=== PATIENT | male | born 1945 | race Caucasian/White ===

== ENCOUNTER → 2021-06-18 11:57 | Outpatient (CLI) | payer MEDICARE, SELFPAY ==
--- NOTE | 2021-06-18 12:00 | DI.RAD.S_ITS ---
PROCEDURE: XR KNEE RT 3V INDICATIONS: RIGHT KNEE PAIN, HX TORN ACL TECHNIQUE: 3 views of the knee were acquired. COMPARISON: None. FINDINGS: Bones: No fractures or dislocations. No suspicious bony lesions. Moderate narrowing of the medial femoral tibial joint and tricompartmental periarticular osteophyte formation. Soft tissues: No joint effusion. No suspicious soft tissue calcifications. IMPRESSION: Knee joint degeneration, most notably involving the medial femorotibial joint. Dictated by: Earl Alvarado [facility] Interpreted: Elyssa Miranda MD on 06/18/2021 at 12:55 Transcribed by: INES on 06/18/2021 at 12:56 Approved by: Elyssa Miranda MD, PhD on 06/18/2021 at 13:10
[2021-06-18 12:58] LABS: Add Manual Diff / Slide Review NO; Basophils Absolute Auto 0 /uL (0-100); Basophils Percent Auto 0.7 % (0-2); Eosinophils Absolute Auto 300 /uL (0-450); Eosinophils Percent Auto 4.3 % (2-4); Hematocrit 41.4 % (41-53); Hemoglobin 13.9 g/dL (13.5-17.5); Lymphocytes Absolute Auto 1800 /uL (1100-4500); Lymphocytes Percent Auto 25.5 % (25-40); Mean Corpuscular HGB Conc 33.5 % (30-36); Mean Corpuscular Hemoglobin 31.4 PG (26-34); Mean Corpuscular Volume 93.9 fL (80-100); Monocytes Absolute Auto 600 /uL (0-900); Monocytes Percent Auto 9.2 % (3-14); Neutrophils Absolute Auto 4200 /uL (1500-7000); Neutrophils Percent Auto 60.3 % (50-75); Platelet Count 185 X10^3/uL (150-400); Red Blood Cell Count 4.41 X10^6/uL (4.5-5.9); Red Cell Distribution Width 13.9 % (11.6-14.8); White Blood Cell Count 6.9 X10^3/uL (4.5-11.0)
[2021-06-18 13:36] LABS: Alanine Aminotransferase 18 IU/L (<50); Albumin 3.8 g/dL (3.5-5.0); Albumin Globulin Ratio 1.2 (1.0-2.8); Alkaline Phosphatase 59 U/L (38-126); Aspartate Aminotransferase 25 IU/L (17-59); BUN Creatinine Ratio 15.6 (6-22); Bilirubin Total 0.5 mg/dL (0.2-1.3); Blood Urea Nitrogen 19 mg/dL (9-20); Calcium 9.6 mg/dL (8.4-10.2); Carbon Dioxide 28 mmol/L (22-32); Chloride 103 mmol/L (98-107); Cholesterol 212 mg/dL (140-199); Estimated Glomerular Filt Rate 57.6 mL/min (>60); Globulin 3.1 g/dL (1.7-4.1); Glucose 99 mg/dL (80-110); HDL Cholesterol 60 mg/dL (40-60); HEMOLYSIS < 15 (0-50); LDL Cholesterol Calculated 140 mg/dL (<100); Potassium 4.5 mmol/L (3.4-5.1); Sodium 136 mmol/L (137-145); Total Protein 6.9 g/dL (6.3-8.2); Triglycerides 60 mg/dL (35-150)
[2021-06-18 14:08] LABS: Prostate Specific Antigen Scrn 1.46 ng/mL (0.1-4.0)
== END ==
PROVIDERS: PCP Family Medicine; Referring Provider Family Medicine; Visit Provider Family Medicine
DX: Z13.228 Encounter for screening for other metabolic disorders (principal); Z80.42 Family history of malignant neoplasm of prostate; Z12.5 Encounter for screening for malignant neoplasm of prostate; Z13.220 Encounter for screening for lipoid disorders; M25.561 Pain in right knee
CPT/HCPCS: 36415; 73562; 80053; 80061; 85025; G0103

== ENCOUNTER → 2021-07-04 12:38 | Outpatient (CLI) | payer MEDICARE, SELFPAY ==
--- NOTE | 2021-07-04 12:40 | DI.MRI.S_ITS ---
PROCEDURE: MR KNEE RT WO CON INDICATIONS: Progressive right knee pain and instability with post activi TECHNIQUE: Noncontrast sagittal PD fast spin echo and T2 fast spin echo with fat saturation, sagittal 3-D FLASH with fat saturation; coronal T1 spin echo and PD fast spin echo with fat saturation, and axial PD fast spin echo with fat saturation through the knee. COMPARISON: [facility], CR, XR KNEE RT 3V, 06/18/2021, 12:33. FINDINGS: Image quality: Excellent. Menisci: There is a radial tear at the body of the medial meniscus measuring approximately 9 mm in width. There is degeneration and maceration of the posterior portion of the body and posterior horn of the medial meniscus. There is intrasubstance signal in body and posterior horn of the lateral meniscus with suspected extension to the inner third of the tibial articular surface. Cruciate ligaments: The anterior and posterior cruciate ligaments appear intact. Medial structures: The medial collateral ligament appears intact. The semimembranosus tendon insertions and meniscocapsular junction appear intact. Visualized portions of the pes anserinus tendons appear normal. No abnormal bursal fluid. Lateral structures: The lateral collateral ligament, long and short heads of the biceps femoris tendon appear intact. The popliteus tendon appears intact. No signs of posterolateral corner injury. Iliotibial band appears normal. Anterior structures: The quadriceps and patellar tendons appear intact. Patellar alignment is normal. No femoral trochlear dysplasia or ventral trochlear prominence. No edema in the infrapatellar fat pad. Bones and cartilage: No bone marrow contusions or fractures. Areas of full-thickness cartilage loss are seen in the central to posterior weight-bearing portion of the medial femoral condyle with subchondral edema. There is high-grade cartilage thinning in the adjacent medial tibial plateau. The articular cartilages in the lateral and anterior compartments are grossly maintained. Joint space: There is a small joint effusion. A small medial popliteal cyst is present. There is surrounding soft tissue edema that could indicate prior cyst rupture. Fluid is seen tracking along the popliteus tendon sheath. There is nonspecific subcutaneous edema in the anterior soft tissues. IMPRESSION: 1. Radial tear at the body of the medial meniscus with degenerative tearing and maceration of the adjacent posterior body and posterior horn. 2. Subtle horizontal oblique tear at the junction of the posterior horn and body of the lateral meniscus. 3. Full-thickness cartilage loss in the weight-bearing portion of the medial femorotibial compartment with subchondral edema. 4. Small joint effusion. A small medial popliteal cyst is seen with mild surrounding edema that could indicate prior cyst rupture. Dictated by: Esdras Raphael M.D. on 07/04/2021 at 14:07 Approved by: Esdras Raphael M.D. on 07/04/2021 at 14:23
== END ==
PROVIDERS: PCP Family Medicine; Referring Provider Family Medicine; Visit Provider Family Medicine
DX: M17.11 Unilateral primary osteoarthritis, right knee (principal); S83.241A Other tear of medial meniscus, current injury, right knee, initial encounter; S83.281A Other tear of lateral meniscus, current injury, right knee, initial encounter; M25.461 Effusion, right knee; M71.21 Synovial cyst of popliteal space [Baker], right knee
CPT/HCPCS: 73721

== ENCOUNTER → 2021-08-21 09:08 | Outpatient (CLI) | payer MEDICARE, SELFPAY ==
[2021-08-21 10:38] LABS: COVID19 -Nasal RAPID Negative (Negative)
== END ==
PROVIDERS: PCP Family Medicine; Referring Provider Surgery; Visit Provider Surgery
DX: Z01.812 Encounter for preprocedural laboratory examination (principal); Z20.822 Contact with and (suspected) exposure to COVID-19
CPT/HCPCS: 87635; C9803

== ENCOUNTER 2021-08-22 09:32 | Day surgery (SDC) | payer MEDICARE, SELFPAY ==
[2021-08-22 09:53] VITALS: BP 148/62; PULSE 48; RESP 14; TEMP 36.4; O2SAT 99; BMI 28.7
--- NOTE | 2021-08-22 10:29 | PM.HP.1 ---
History of Present Illness History of Present Illness Date Patient Seen: 08/22/21 Time Patient Seen: 10:29 Chief complaint: SDC Narrative: H/o polyps, none on his last colonoscopy. It has been 10 years since. No symptoms. Patient History Medical History COPD (chronic obstructive pulmonary disease) Degenerative joint disease of knee, right Neuropathy Preventative health care Seborrheic keratoses Family & Social History Social History: household members spouse Tobacco & Substance use: Smoking Status Former smoker alcohol intake current alcohol intake frequency 0-2 drinks per day Substance Use Type does not use Meds Home Medications and Allergies Allergies Allergy/AdvReac Type Severity Reaction Status Date / Time No Known Drug Allergies Allergy Verified 08/22/21 09:44 Review of Systems Review of Systems ROS: Yes All systems reviewed with the patient and are negative except as otherwise documented Exam Vital Signs (past 8 hours): - 08/22/21 09:53 Temperature 97.5 F L Pulse Rate 48 L Respiratory Rate 14 Blood Pressure 148/62 H Pulse Oximetry 99 Oxygen Delivery Method Room Air Const General: cooperative and healthy appearing [facility] Head: normocephalic and atraumatic Eyes General: appearance normal, both eyes and all related structures Neck Neck: trachea midline Resp Effort & Inspection: normal respiratory effort and able to speak in complete sentences Cardio Rate: regular rate Rhythm: regular rhythm GI Inspection: normal to inspection Palpation: soft Skin General: no rashes or lesions noted Neuro General: patient alert and patient oriented x3 Extrem General: full ROM Psych Appearance: grossly normal Judgment: judgment good Assessment & Plan Assessment & Plan narrative: H/o colon polyps. Here for screening colonoscopy with moderate sedation COVID-19 COVID-19 status: Negative Time Spent With Patient Time with patient: less than 30 minutes Critical Care time: I spent a total of [] minutes of critical care time on this patient's care today; this time is exclusive of procedural time.
[2021-08-22] MEDS: MIDAZOLAM 5 MG/5 ML VIAL IV (10:51)
--- NOTE | 2021-08-22 10:51 | PM.OP.ENDO ---
Operative Date/Time/Diagnoses Date of procedure: 08/22/21 Time of procedure: 10:51 Pre-op diagnosis: History of colon polyps Post-op diagnosis: same Procedure & Clinicians Study performed: Colonoscopy with moderate sedation Same procedure as scheduled: Yes Indications: History of colon polyps Surgeon: Rachana Cisneros Procedure Notes SCOAP/Timeout: Done Procedure in detail: Preop diagnosis: History of colon polyps Postop diagnosis: Same Operative procedure: Colonoscopy with moderate sedation Surgeon: Elena Cisneros MD Anesthetic: 3 mg Versed 50 mg of fentanyl ASA: 1 Findings: Normal colonoscopy. No polyps and no significant diverticulosis Procedure: Patient placed in lateral position. Rectal exam is performed showing normal tone no masses. Colonoscope inserted into the rectum and advanced to the ileocecal valve with minimal difficulty. Insufflation and extraction of the scope and the above findings. Retroflex was included in the rectum. Impression: No polyps detected. Nose significant diverticulosis. Otherwise normal exam. Plan: Repeat colonoscopy in 10 years Sedation minutes: 14 Specimen(s): none sent Complications: none Impression: No polyps, no diverticulosis. Post-procedure Recommendations: Colonscopy in 10 years Plan for aftercare: PACU Follow up: as needed Disposition: PACU
[2021-08-22 10:52] VITALS: BP 119/59; PULSE 53; RESP 15; TEMP 36.9; O2SAT 97
[2021-08-22] MEDS: fentaNYL 250 MCG/5 ML INJ IV (10:52)
[2021-08-22 10:57] VITALS: BP 119/61; PULSE 46; RESP 15; O2SAT 99
[2021-08-22 11:02] VITALS: BP 119/58; PULSE 50; RESP 14; O2SAT 98
[2021-08-22 11:07] VITALS: BP 116/61; PULSE 48; RESP 15; O2SAT 97
[2021-08-22 11:12] VITALS: BP 122/56; PULSE 49; RESP 16; TEMP 37.4; O2SAT 97
== END 2021-08-22 11:35 | disposition home or self-care (01) ==
PROVIDERS: PCP Family Medicine; Referring Provider Surgery; Visit Provider Surgery
PROC: 0DJD8ZZ Inspection of Lower Intestinal Tract, Via Natural or Artificial Opening Endoscopic (ICD-10-PCS; CPT 45378; principal; 2021-08-22 10:45)
DX: Z12.11 Encounter for screening for malignant neoplasm of colon (principal); Z86.010 Personal history of colon polyps; J44.9 Chronic obstructive pulmonary disease, unspecified
CPT/HCPCS: G0105; 99152; J2250; J3010

== ENCOUNTER 2021-08-28 08:15 | Outpatient (RCR) | payer MEDICARE, SELFPAY ==
--- NOTE | 2021-07-16 10:05 | PT.OIE ---
Current Diagnoses Unilateral primary osteoarthritis, right knee (07/16/21) Past Medical History (Last Updated 06/30/21 @ 16:16 by Rajat Uribe DO) COPD (chronic obstructive pulmonary disease) Degenerative joint disease of knee, right Neuropathy Seborrheic keratoses Visit Care Team Role Provider Type Rajat Uribe DO Attending Provider Physician Primary Care Provider Referring Provider Specialty: [facility] Address: [address] [place] [address], [facility] Email: [email or web address] Physical Therapy Initial Evaluation PT-OP-A Visit Information Start: 07/16/21 09:44 Freq: Status: Active Protocol: Document 07/16/21 08:55 OF (Rec: 07/16/21 10:05 OF [email or web address]) Out-Patient Physical Therapy Visit Information Visit Information Visit Type Treatment Note Visit Start Time 08:15 Visit Stop Time 08:55 Total Visit Minutes 40 Visit Number 1 Evaluation Information Evaluation Date 07/16/21 PT-OP-B Current Condition Start: 07/16/21 09:44 Freq: Status: Active Protocol: Document 07/16/21 08:55 OF (Rec: 07/16/21 10:05 OF [email or web address]) Current Condition History of Current Condition Onset Date ~6weeks prior History of Current Condition Pt reports he was moving rounds of wood which were heavy, noticed swelling and pain in knee 1st day post. He has had difficulty hiking, walking, weightbearing since. He had a cortizone shot 5 days ago which has reduced swelling per pt Prior Treatments and Tests MRI describes medial meniscal tear, lateral tear, loss of medial compartment joint space and cartilage, popliteal cyst , normal cruciate ligaments and quad tendon. 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 Denies pain today or at rest Patient Reported Progress Same OP-PT Pain Assessment Pain Assessment Grid Paper Pain Assessment Grid Completed No: pt denies pain upon evaluation, has pain with activity PT-OP-K Range of Motion Start: 07/16/21 09:44 Freq: Status: Active Protocol: Document 07/16/21 08:55 OF (Rec: 07/16/21 10:05 OF [email or web address]) Knee Goniometric Range of Motion Knee L Knee ROM WFL Yes Flexion Active (degrees) 120 Extension Active (degrees) 180 R Knee ROM WFL Yes Patient Position Sitting Flexion Active (degrees) 115 Extension Active (degrees) 180 PT-OP-M Strength Start: 07/16/21 09:44 Freq: Status: Active Protocol: Document 07/16/21 08:55 OF (Rec: 07/16/21 10:05 OF [email or web address]) Knee Strength Knee Manual Muscle Testing L Flexion (S2) 5 Normal Extension (L3) 5 Normal Comments well developed L quad R Flexion (S2) 3+ Fair+ Extension (L3) 3+ Fair+ PT-OP-Q Treatments Start: 07/16/21 09:44 Freq: Status: Active Protocol: Document 07/16/21 08:55 OF (Rec: 07/16/21 10:05 OF [email or web address]) Therapeutic Exercises Supine Exercises bridges on heel Side bilateral Reps/Minutes 2x10 Sitting Exercises LAQ Side bilateral Resistance 5# Reps/Minutes 1x15 Comments cues for 3x10 at home, eccentric lowering Self-Care/Home Management Treatment Education Patient Education Home Exercise Program Other Education offloading R knee with step to gait for stairs, using trekking poles to unload as well PT-OP-T Assessment and Plan Start: 07/16/21 09:44 Freq: Status: Active Protocol: Document 07/16/21 08:55 OF (Rec: 07/16/21 10:05 OF [email or web address]) Physical Therapy Assessment Rehab Potential Rehabilitation Potential Good Evaluation Complexity Number of Personal Factors/Comorbidities 1-2 Number of Body Systems Impaired 1-2 Clinical Presentation at Evaluation Stable Impairments Impairments Gait,Pain,ROM,Strength Goals pain Impairment pain in R knee with hiking/ walking Short Term Goal (STG) Pt will walk 2miles with pain <4/10 STG Duration 2 weeks Alf Goal (LTG) Pt will walk 4miles on uneven terrain with pain <4/10 in order to return to hiking LTG Duration 6 weeks R LE weakness Impairment R LE weakness Short Term Goal (STG) Pt will improve R knee extension strength to 4/5 STG Duration 2 weeks Alf Goal (LTG) Pt will improve LE strength to complete >14 sit to stands in 30sec LTG Duration 6 weeks ROM Impairment pt lacks R knee flexion Alf Goal (LTG) Pt will improve R knee AROM flexion to 120 degrees. LTG Duration 6 weeks HEP Impairment Pt lacks HEP Short Term Goal (STG) Pt will be I with HEP for strengthening R LE STG Duration 2 weeks Assessment Summary Assessment Sal is a pleasant 75yo male who enjoys hiking and is overall fit. He has had R knee pain x6 weeks after moving [employer]. He reports pain is worst with downhill walking, prolonged walking. He has had reduced swelling in R knee after cortizone shot about 5 days prior. He has a prior R LE injury ~2yrs prior which he reports falling while hiking, he had bruising and swelling throughout entire LE x5days. He has persistent bulge over R quad. He has had an MRI which describes meniscal tears, loss of joint space and cartilage loss in medial compartment. Sal will require skilled therapy to improve R LE strength, reduce pain in R knee, and return to hiking as desired. Physical Therapy Plan Frequency and Duration Frequency of Treatment 1-2x/week Duration of Treatment 6weeks Plan of Care Start Date 07/16/21 Plan of Care End Date 08/27/21 Therapeutic Interventions Therapeutic Interventions Gait Training,Home Exercise Program,Joint Mobilizations, Manual Therapy,Neuromuscular Re-education,Patient/Caregiver Education,Soft Tissue Mobilization,Therapeutic Activities,Therapeutic Exercises Next Visit Focus/Plan Next Note Type Treatment Note Next Visit Plan assess HEP with 5# LAQ, bridges, progress quad and glute strengthening, educate upon offloading techniques
--- NOTE | 2021-07-16 10:06 | PT.OPPOC ---
Physical, Occupational & Speech Therapy At [facility] Current Diagnoses Unilateral primary osteoarthritis, right knee (07/16/21) Visit Care Team Role Provider Type Rajat Uribe DO Attending Provider Physician Primary Care Provider Referring Provider Specialty: Family Practice Address: [address] [place] [address], [id number] Email: [email or web address] Of Care PT-OP-T Assessment and Plan Start: 07/16/21 09:44 Freq: Status: Active Protocol: Document 07/16/21 08:55 OF (Rec: 07/16/21 10:05 OF [email or web address]) Physical Therapy Assessment Rehab Potential Rehabilitation Potential Good Evaluation Complexity Number of Personal Factors/Comorbidities 1-2 Number of Body Systems Impaired 1-2 Clinical Presentation at Evaluation Stable Impairments Impairments Gait,Pain,ROM,Strength Goals pain Impairment pain in R knee with hiking/ walking Short Term Goal (STG) Pt will walk 2miles with pain <4/10 STG Duration 2 weeks Nursing Home Goal (LTG) Pt will walk 4miles on uneven terrain with pain <4/10 in order to return to hiking LTG Duration 6 weeks R LE weakness Impairment R LE weakness Short Term Goal (STG) Pt will improve R knee extension strength to 4/5 STG Duration 2 weeks Carpenter Inspector Goal (LTG) Pt will improve LE strength to complete >14 sit to stands in 30sec LTG Duration 6 weeks ROM Impairment pt lacks R knee flexion Nursing Home Goal (LTG) Pt will improve R knee AROM flexion to 120 degrees. LTG Duration 6 weeks HEP Impairment Pt lacks HEP Short Term Goal (STG) Pt will be I with HEP for strengthening R LE STG Duration 2 weeks Assessment Summary Assessment Sal is a pleasant 75yo male who enjoys hiking and is overall fit. He has had R knee pain x6 weeks after moving [place] rounds. He reports pain is worst with downhill walking, prolonged walking. He has had reduced swelling in R knee after cortizone shot about 5 days prior. He has a prior R LE injury ~2yrs prior which he reports falling while hiking, he had bruising and swelling throughout entire LE x5days. He has persistent bulge over R quad. He has had an MRI which describes meniscal tears, loss of joint space and cartilage loss in medial compartment. Sal will require skilled therapy to improve R LE strength, reduce pain in R knee, and return to hiking as desired. Physical Therapy Plan Frequency and Duration Frequency of Treatment 1-2x/week Duration of Treatment 6weeks Plan of Care Start Date 07/16/21 Plan of Care End Date 08/27/21 Therapeutic Interventions Therapeutic Interventions Gait Training,Home Exercise Program,Joint Mobilizations, Manual Therapy,Neuromuscular Re-education,Patient/Caregiver Education,Soft Tissue Mobilization,Therapeutic Activities,Therapeutic Exercises Next Visit Focus/Plan Next Note Type Treatment Note Next Visit Plan assess HEP with 5# LAQ, bridges, progress quad and glute strengthening, educate upon offloading techniques Plan of Care Dates Plan of Care Start Date 07/16/21 Plan of Care End Date 08/27/21 Electronically Signed by: Arnu Sheehan, PT 07/16/21 1006 Please Sign and Return: I have reviewed this Plan of Care and certify that the skilled therapy services above are required to meet the patient?s needs. Physician Signature Date Printed Name and Credentials Clinical Instructor Signature Printed Name and Credentials
--- NOTE | 2021-07-18 12:49 | PT.OTN ---
Current Diagnoses Unilateral primary osteoarthritis, right knee (07/18/21) Physical Therapy Treatment Note PT-OP-A Visit Information Start: 07/16/21 09:44 Freq: Status: Active Protocol: Document 07/18/21 12:39 OF (Rec: 07/18/21 12:49 OF [email or web address]) Out-Patient Physical Therapy Visit Information Visit Information Visit Type Treatment Note Visit Start Time 08:12 Visit Stop Time 08:54 Total Visit Minutes 42 Visit Number 2 Evaluation Information Evaluation Date 07/16/21 PT-OP-B Current Condition Start: 07/16/21 09:44 Freq: Status: Active Protocol: Document 07/16/21 08:55 OF (Rec: 07/16/21 10:05 OF [email or web address]) Current Condition History of Current Condition Onset Date ~6weeks prior History of Current Condition Pt reports he was moving rounds of wood which were heavy, noticed swelling and pain in knee 1st day post. He has had difficulty hiking, walking, weightbearing since. He had a cortizone shot 5 days ago which has reduced swelling per pt Prior Treatments and Tests MRI describes medial meniscal tear, lateral tear, loss of medial compartment joint space and cartilage, popliteal cyst , normal cruciate ligaments and quad tendon. 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, active, hikes regularly PT-OP-C Subjective Start: 07/16/21 09:44 Freq: Status: Active Protocol: Document 07/18/21 12:39 OF (Rec: 07/18/21 12:49 OF [email or web address]) OP-PT Subjective Patient Comments Patient Comments pt reports swimming was helpful Patient Reported Progress Improving OP-PT Pain Assessment Pain Assessment Grid Paper Pain Assessment Grid Completed pt denies pain today PT-OP-K Range of Motion Start: 07/16/21 09:44 Freq: Status: Active Protocol: Document 07/16/21 08:55 OF (Rec: 07/16/21 10:05 OF [email or web address]) Knee Goniometric Range of Motion Knee L Knee ROM WFL Yes Flexion Active (degrees) 120 Extension Active (degrees) 180 R Knee ROM WFL Yes Patient Position Sitting Flexion Active (degrees) 115 Extension Active (degrees) 180 PT-OP-M Strength Start: 07/16/21 09:44 Freq: Status: Active Protocol: Document 07/16/21 08:55 OF (Rec: 07/16/21 10:05 OF [email or web address]) Knee Strength Knee Manual Muscle Testing L Flexion (S2) 5 Normal Extension (L3) 5 Normal Comments well developed L quad R Flexion (S2) 3+ Fair+ Extension (L3) 3+ Fair+ PT-OP-Q Treatments Start: 07/16/21 09:44 Freq: Status: Active Protocol: Document 07/18/21 12:39 OF (Rec: 07/18/21 12:49 OF [email or web address]) Therapeutic Exercises Supine Exercises bridges on heel Side bilateral Reps/Minutes 3x10 Sitting Exercises LAQ Side bilateral Resistance 5# Reps/Minutes 3x10 Comments cues for 3x10 at home, eccentric lowering Neuro Re-Education Treatment Balance Activities balance board Details red clips Reps/Duration 5min ant/post, 5min lateral, difficulty shifting weight PT-OP-T Assessment and Plan Start: 07/16/21 09:44 Freq: Status: Active Protocol: Document 07/18/21 12:39 OF (Rec: 07/18/21 12:49 OF [email or web address]) Physical Therapy Assessment Rehab Potential Rehabilitation Potential Good Evaluation Complexity Number of Personal Factors/Comorbidities 1-2 Number of Body Systems Impaired 1-2 Clinical Presentation at Evaluation Stable Impairments Impairments Gait,Pain,ROM,Strength Goals pain Impairment pain in R knee with hiking/ walking Short Term Goal (STG) Pt will walk 2miles with pain <4/10 STG Duration 2 weeks Senior Living Goal (LTG) Pt will walk 4miles on uneven terrain with pain <4/10 in order to return to hiking LTG Duration 6 weeks R LE weakness Impairment R LE weakness Short Term Goal (STG) Pt will improve R knee extension strength to 4/5 STG Duration 2 weeks Senior Living Goal (LTG) Pt will improve LE strength to complete >14 sit to stands in 30sec LTG Duration 6 weeks ROM Impairment pt lacks R knee flexion Cashier Checker Goal (LTG) Pt will improve R knee AROM flexion to 120 degrees. LTG Duration 6 weeks HEP Impairment Pt lacks HEP Short Term Goal (STG) Pt will be I with HEP for strengthening R LE STG Duration 2 weeks Progress Towards Goals Progress Towards Goals Progressing Toward Goals Assessment Summary Assessment pt agreeable to HEP, progressing quad strengthening Physical Therapy Plan Frequency and Duration Frequency of Treatment 1-2x/week Duration of Treatment 6weeks Plan of Care Start Date 07/16/21 Plan of Care End Date 08/27/21 Therapeutic Interventions Therapeutic Interventions Gait Training,Home Exercise Program,Joint Mobilizations, Manual Therapy,Neuromuscular Re-education,Patient/Caregiver Education,Soft Tissue Mobilization,Therapeutic Activities,Therapeutic Exercises Next Visit Focus/Plan Next Note Type Treatment Note Next Visit Plan Progress quad strength, improve righting reactions
--- NOTE | 2021-07-22 11:57 | PT.OTN ---
Current Diagnoses Unilateral primary osteoarthritis, right knee (07/22/21) Physical Therapy Treatment Note PT-OP-A Visit Information Start: 07/16/21 09:44 Freq: Status: Active Protocol: Document 07/22/21 11:51 OF (Rec: 07/22/21 11:56 OF [id number]) Out-Patient Physical Therapy Visit Information Visit Information Visit Type Treatment Note Visit Start Time 08:13 Visit Stop Time 08:56 Total Visit Minutes 43 Visit Number 3 Evaluation Information Evaluation Date 07/16/21 PT-OP-B Current Condition Start: 07/16/21 09:44 Freq: Status: Active Protocol: Document 07/16/21 08:55 OF (Rec: 07/16/21 10:05 OF [email or web address]) Current Condition History of Current Condition Onset Date ~6weeks prior History of Current Condition Pt reports he was moving rounds of wood which were heavy, noticed swelling and pain in knee 1st day post. He has had difficulty hiking, walking, weightbearing since. He had a cortizone shot 5 days ago which has reduced swelling per pt Prior Treatments and Tests MRI describes medial meniscal tear, lateral tear, loss of medial compartment joint space and cartilage, popliteal cyst , normal cruciate ligaments and quad tendon. 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, active, hikes regularly PT-OP-C Subjective Start: 07/16/21 09:44 Freq: Status: Active Protocol: Document 07/22/21 11:51 OF (Rec: 07/22/21 11:56 OF [id number]) OP-PT Subjective Patient Comments Patient Comments Pt reports cycline without knee pain Patient Reported Progress Improving OP-PT Pain Assessment Pain Assessment Grid Paper Pain Assessment Grid Completed pt denies pain today PT-OP-K Range of Motion Start: 07/16/21 09:44 Freq: Status: Active Protocol: Document 07/16/21 08:55 OF (Rec: 07/16/21 10:05 OF [email or web address]) Knee Goniometric Range of Motion Knee L Knee ROM WFL Yes Flexion Active (degrees) 120 Extension Active (degrees) 180 R Knee ROM WFL Yes Patient Position Sitting Flexion Active (degrees) 115 Extension Active (degrees) 180 PT-OP-M Strength Start: 07/16/21 09:44 Freq: Status: Active Protocol: Document 07/16/21 08:55 OF (Rec: 07/16/21 10:05 OF [email or web address]) Knee Strength Knee Manual Muscle Testing L Flexion (S2) 5 Normal Extension (L3) 5 Normal Comments well developed L quad R Flexion (S2) 3+ Fair+ Extension (L3) 3+ Fair+ PT-OP-Q Treatments Start: 07/16/21 09:44 Freq: Status: Active Protocol: Document 07/22/21 11:51 OF (Rec: 07/22/21 11:56 OF [id number]) Cardio Equipment Bicycle (Upright) Duration (Minutes) 10 Resistance 5,10 Seat Position 6 Other 5min at 5, 5 at 10 Therapeutic Exercises Supine Exercises bridges on heel Side bilateral Reps/Minutes 3x10 Sitting Exercises knee ext machine Side bilateral Resistance 2 plates Comments alternate for single leg knee ext LAQ Side bilateral Resistance 5# Reps/Minutes 3x10 Comments cues for 3x10 at home, eccentric lowering Standing Exercises gastroc/soleus stretch Side bilateral Reps/Minutes [id number] hip abd Side bilateral Resistance TB2 Reps/Minutes 3x10 Comments cues to offload R LE with counter if needed Neuro Re-Education Treatment Balance Activities balance board Details red clips Reps/Duration 5min ant/post, 5min lateral, improved lateral weight shifting Self-Care/Home Management Treatment Education Patient Education Home Exercise Program,Joint Protection PT-OP-T Assessment and Plan Start: 07/16/21 09:44 Freq: Status: Active Protocol: Document 07/22/21 11:51 OF (Rec: 07/22/21 11:56 OF [id number]) Physical Therapy Assessment Rehab Potential Rehabilitation Potential Good Evaluation Complexity Number of Personal Factors/Comorbidities 0 Number of Body Systems Impaired 1-2 Clinical Presentation at Evaluation Stable Impairments Impairments Gait,Pain,ROM,Strength Goals pain Impairment pain in R knee with hiking/ walking Short Term Goal (STG) Pt will walk 2miles with pain <4/10 STG Duration 2 weeks Senior Living Goal (LTG) Pt will walk 4miles on uneven terrain with pain <4/10 in order to return to hiking LTG Duration 6 weeks R LE weakness Impairment R LE weakness Short Term Goal (STG) Pt will improve R knee extension strength to 4/5 STG Duration 2 weeks Master [employer] Goal (LTG) Pt will improve LE strength to complete >14 sit to stands in 30sec LTG Duration 6 weeks ROM Impairment pt lacks R knee flexion Senior Living Goal (LTG) Pt will improve R knee AROM flexion to 120 degrees. LTG Duration 6 weeks HEP Impairment Pt lacks HEP Short Term Goal (STG) Pt will be I with HEP for strengthening R LE STG Duration 2 weeks Progress Towards Goals Progress Towards Goals Progressing Toward Goals Assessment Summary Assessment Sal is improving quad recruitment and dynamic balance, he reports cycline without knee pain. Performing HEP as instructed. Physical Therapy Plan Frequency and Duration Frequency of Treatment 2x/Week Duration of Treatment 6weeks Plan of Care Start Date 07/16/21 Plan of Care End Date 08/27/21 Therapeutic Interventions Therapeutic Interventions Gait Training,Home Exercise Program,Joint Mobilizations, Manual Therapy,Neuromuscular Re-education,Patient/Caregiver Education,Soft Tissue Mobilization,Therapeutic Activities,Therapeutic Exercises Next Visit Focus/Plan Next Note Type Treatment Note Next Visit Plan progress hip strengthening, quad strengthening, assess HEP for over performance. Educated on quad soreness as effective work, joint line pain to be avoided
--- NOTE | 2021-07-24 10:59 | PT.OTN ---
Current Diagnoses Unilateral primary osteoarthritis, right knee (07/24/21) Physical Therapy Treatment Note PT-OP-A Visit Information Start: 07/16/21 09:44 Freq: Status: Active Protocol: Document 07/24/21 10:53 OF (Rec: 07/24/21 10:59 OF [id number]) Out-Patient Physical Therapy Visit Information Visit Information Visit Type Treatment Note Visit Start Time 08:10 Visit Stop Time 08:54 Total Visit Minutes 44 Visit Number 4 Evaluation Information Evaluation Date 07/16/21 PT-OP-B Current Condition Start: 07/16/21 09:44 Freq: Status: Active Protocol: Document 07/16/21 08:55 OF (Rec: 07/16/21 10:05 OF [email or web address]) Current Condition History of Current Condition Onset Date ~6weeks prior History of Current Condition Pt reports he was moving rounds of wood which were heavy, noticed swelling and pain in knee 1st day post. He has had difficulty hiking, walking, weightbearing since. He had a cortizone shot 5 days ago which has reduced swelling per pt Prior Treatments and Tests MRI describes medial meniscal tear, lateral tear, loss of medial compartment joint space and cartilage, popliteal cyst , normal cruciate ligaments and quad tendon. 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, active, hikes regularly PT-OP-C Subjective Start: 07/16/21 09:44 Freq: Status: Active Protocol: Document 07/24/21 10:53 OF (Rec: 07/24/21 10:59 OF [id number]) OP-PT Subjective Patient Comments Patient Comments pt reports occasional pain in patellar tendon, only after exercise last tx Patient Reported Progress Improving OP-PT Pain Assessment Pain Assessment Grid Paper Pain Assessment Grid Completed No: pt denies pain during tx PT-OP-K Range of Motion Start: 07/16/21 09:44 Freq: Status: Active Protocol: Document 07/16/21 08:55 OF (Rec: 07/16/21 10:05 OF [email or web address]) Knee Goniometric Range of Motion Knee L Knee ROM WFL Yes Flexion Active (degrees) 120 Extension Active (degrees) 180 R Knee ROM WFL Yes Patient Position Sitting Flexion Active (degrees) 115 Extension Active (degrees) 180 PT-OP-M Strength Start: 07/16/21 09:44 Freq: Status: Active Protocol: Document 07/16/21 08:55 OF (Rec: 07/16/21 10:05 OF [email or web address]) Knee Strength Knee Manual Muscle Testing L Flexion (S2) 5 Normal Extension (L3) 5 Normal Comments well developed L quad R Flexion (S2) 3+ Fair+ Extension (L3) 3+ Fair+ PT-OP-Q Treatments Start: 07/16/21 09:44 Freq: Status: Active Protocol: Document 07/24/21 10:53 OF (Rec: 07/24/21 10:59 OF [id number]) Cardio Equipment Bicycle (Upright) Duration (Minutes) 10 Resistance 5,10 Seat Position 6 Other 5min at 5, 5min at 10 Gym Equipment Shuttle Recovery Bilateral Squats Resistance 50# Shuttle Recovery Platform Unstable Reps/Time 3x10 Shuttle Balance lat/a&P Details 10min Comments improved weightshifting ant/ post Therapeutic Exercises Sitting Exercises LAQ Side bilateral Resistance 5# Reps/Minutes 3x10 Comments cues for 4x10 at home, eccentric lowering Standing Exercises gastroc/soleus stretch Side bilateral Reps/Minutes [id number] hip abd Side bilateral Resistance TB3 Reps/Minutes 3x10 Comments cues to offload R LE with counter if needed Self-Care/Home Management Treatment Education Patient Education Home Exercise Program Other Education offloading R LE with counter for HEP, guarding for stairs PT-OP-T Assessment and Plan Start: 07/16/21 09:44 Freq: Status: Active Protocol: Document 07/24/21 10:53 OF (Rec: 07/24/21 10:59 OF [id number]) Physical Therapy Assessment Rehab Potential Rehabilitation Potential Excellent Evaluation Complexity Number of Personal Factors/Comorbidities 0 Number of Body Systems Impaired 1-2 Clinical Presentation at Evaluation Stable Impairments Impairments Gait,Pain,ROM,Strength Goals pain Impairment pain in R knee with hiking/ walking Short Term Goal (STG) Pt will walk 2miles with pain <4/10 STG Duration 2 weeks Career Coordinator Goal (LTG) Pt will walk 4miles on uneven terrain with pain <4/10 in order to return to hiking LTG Duration 6 weeks R LE weakness Impairment R LE weakness Short Term Goal (STG) Pt will improve R knee extension strength to 4/5 STG Duration 2 weeks Career Coordinator Goal (LTG) Pt will improve LE strength to complete >14 sit to stands in 30sec LTG Duration 6 weeks ROM Impairment pt lacks R knee flexion Career Coordinator Goal (LTG) Pt will improve R knee AROM flexion to 120 degrees. LTG Duration 6 weeks HEP Impairment Pt lacks HEP Short Term Goal (STG) Pt will be I with HEP for strengthening R LE STG Duration 2 weeks Progress Towards Goals Progress Towards Goals Progressing Toward Goals Assessment Summary Assessment Sal had pain after last tx, he is aware of limiting activity with joint line pain, or new onset patellar tendon pain, educated upon loading/ progressing. He is improving balance and reports improved function with hiking/walking at home Physical Therapy Plan Frequency and Duration Frequency of Treatment 2x/Week Duration of Treatment 6weeks Plan of Care Start Date 07/16/21 Plan of Care End Date 08/27/21 Therapeutic Interventions Therapeutic Interventions Gait Training,Home Exercise Program,Joint Mobilizations, Manual Therapy,Neuromuscular Re-education,Patient/Caregiver Education,Soft Tissue Mobilization,Therapeutic Activities,Therapeutic Exercises Next Visit Focus/Plan Next Note Type Treatment Note Next Visit Plan increase TB for hip abd to TB3 , progress HEP if no tendon pain. Use knee ext machine for single LE and eccentric focus . Wobble board for leg press. Encourage cycling for HEP
--- NOTE | 2021-07-29 09:44 | PT.OTN ---
Current Diagnoses Unilateral primary osteoarthritis, right knee (07/29/21) Physical Therapy Treatment Note PT-OP-A Visit Information Start: 07/16/21 09:44 Freq: Status: Active Protocol: Document 07/29/21 08:14 MB (Rec: 07/29/21 08:55 MB [id number]) Out-Patient Physical Therapy Visit Information Visit Information Visit Type Treatment Note Visit Note Medicare 03/26 before KX Visit Start Time 08:14 Visit Stop Time 08:59 Total Visit Minutes 45 Visit Number 5 Evaluation Information Evaluation Date 07/16/21 PT-OP-B Current Condition Start: 07/16/21 09:44 Freq: Status: Active Protocol: Document 07/16/21 08:55 OF (Rec: 07/16/21 10:05 OF [email or web address]) Current Condition History of Current Condition Onset Date ~6weeks prior History of Current Condition Pt reports he was moving rounds of wood which were heavy, noticed swelling and pain in knee 1st day post. He has had difficulty hiking, walking, weightbearing since. He had a cortizone shot 5 days ago which has reduced swelling per pt Prior Treatments and Tests MRI describes medial meniscal tear, lateral tear, loss of medial compartment joint space and cartilage, popliteal cyst , normal cruciate ligaments and quad tendon. 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 PT-OP-K Range of Motion Start: 07/16/21 09:44 Freq: Status: Active Protocol: Document 07/16/21 08:55 OF (Rec: 07/16/21 10:05 OF [email or web address]) Knee Goniometric Range of Motion Knee L Knee ROM WFL Yes Flexion Active (degrees) 120 Extension Active (degrees) 180 R Knee ROM WFL Yes Patient Position Sitting Flexion Active (degrees) 115 Extension Active (degrees) 180 PT-OP-M Strength Start: 07/16/21 09:44 Freq: Status: Active Protocol: Document 07/16/21 08:55 OF (Rec: 07/16/21 10:05 OF [email or web address]) Knee Strength Knee Manual Muscle Testing L Flexion (S2) 5 Normal Extension (L3) 5 Normal Comments well developed L quad R Flexion (S2) 3+ Fair+ Extension (L3) 3+ Fair+ PT-OP-Q Treatments Start: 07/16/21 09:44 Freq: Status: Active Protocol: Document 07/29/21 08:14 MB (Rec: 07/29/21 08:55 MB [id number]) Cardio Equipment Bicycle (Upright) Duration (Minutes) 10 Resistance 10 Seat Position 6 Therapeutic Exercises Supine Exercises Jose stretch Side bilateral Comments Abdominal drawing in first, pelvic tilt, dangle leg and pull back, 2 reps Hamstring and AP stretch Side bilateral Comments 20-30 reps Bridge with band around knees Supine Exercise Name Can lift toes as needed Side bilateral Comments Level 3 band around knees, hold 1 minute at least bridges on heel Comments 5 reps demo Sitting Exercises LAQ Side bilateral Comments Level 3 band around ankles, alternate AP end-range Standing Exercises Crab walking and backward walking Side bilateral Comments Level 3 band around ankles and pt performing several steps each direction PT-OP-T Assessment and Plan Start: 07/16/21 09:44 Freq: Status: Active Protocol: Document 07/29/21 08:14 MB (Rec: 07/29/21 08:55 MB [id number]) Physical Therapy Assessment Rehab Potential Rehabilitation Potential Excellent Evaluation Complexity Number of Personal Factors/Comorbidities 0 Number of Body Systems Impaired 1-2 Clinical Presentation at Evaluation Stable Impairments Impairments Gait,Pain,ROM,Strength Goals pain Impairment pain in R knee with hiking/ walking Short Term Goal (STG) Pt will walk 2miles with pain <4/10 STG Duration 2 weeks Correction Goal (LTG) Pt will walk 4miles on uneven terrain with pain <4/10 in order to return to hiking LTG Duration 6 weeks R LE weakness Impairment R LE weakness Short Term Goal (STG) Pt will improve R knee extension strength to 4/5 STG Duration 2 weeks Solar Development Engineer Goal (LTG) Pt will improve LE strength to complete >14 sit to stands in 30sec LTG Duration 6 weeks ROM Impairment pt lacks R knee flexion Correction Goal (LTG) Pt will improve R knee AROM flexion to 120 degrees. LTG Duration 6 weeks HEP Impairment Pt lacks HEP Short Term Goal (STG) Pt will be I with HEP for strengthening R LE STG Duration 2 weeks Progress Towards Goals Progress Towards Goals Progressing Toward Goals Assessment Summary Assessment Provided handouts for pt and chart for HEP today and added flexibility exercises and advanced strengthening exercises. Manual work next treatment date. Physical Therapy Plan Frequency and Duration Frequency of Treatment 2x/Week Duration of Treatment 6weeks Plan of Care Start Date 07/16/21 Plan of Care End Date 08/27/21 Therapeutic Interventions Therapeutic Interventions Gait Training,Home Exercise Program,Joint Mobilizations, Manual Therapy,Neuromuscular Re-education,Patient/Caregiver Education,Soft Tissue Mobilization,Therapeutic Activities,Therapeutic Exercises Next Visit Focus/Plan Next Note Type Treatment Note Next Visit Plan Manual work, piriformis stretch for TFL and hip rotators, progress to tandem balance exercise to work on ankle stretegy, ankle DF and eversion strengthening with band
--- NOTE | 2021-07-31 09:11 | PT.OTN ---
Current Diagnoses Unilateral primary osteoarthritis, right knee (07/31/21) Physical Therapy Treatment Note PT-OP-A Visit Information Start: 07/16/21 09:44 Freq: Status: Active Protocol: Document 07/31/21 08:15 MB (Rec: 07/31/21 09:07 MB [id number]) Out-Patient Physical Therapy Visit Information Visit Information Visit Type Treatment Note Visit Note Medicare 04/26 before KX Visit Start Time 08:15 Visit Stop Time 09:00 Total Visit Minutes 45 Visit Number 6 Evaluation Information Evaluation Date 07/16/21 PT-OP-B Current Condition Start: 07/16/21 09:44 Freq: Status: Active Protocol: Document 07/16/21 08:55 OF (Rec: 07/16/21 10:05 OF [email or web address]) Current Condition History of Current Condition Onset Date ~6weeks prior History of Current Condition Pt reports he was moving rounds of wood which were heavy, noticed swelling and pain in knee 1st day post. He has had difficulty hiking, walking, weightbearing since. He had a cortizone shot 5 days ago which has reduced swelling per pt Prior Treatments and Tests MRI describes medial meniscal tear, lateral tear, loss of medial compartment joint space and cartilage, popliteal cyst , normal cruciate ligaments and quad tendon. 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 PT provides pt with smaller looped level 2 and level 3 bands. PT-OP-K Range of Motion Start: 07/16/21 09:44 Freq: Status: Active Protocol: Document 07/16/21 08:55 OF (Rec: 07/16/21 10:05 OF [email or web address]) Knee Goniometric Range of Motion Knee L Knee ROM WFL Yes Flexion Active (degrees) 120 Extension Active (degrees) 180 R Knee ROM WFL Yes Patient Position Sitting Flexion Active (degrees) 115 Extension Active (degrees) 180 PT-OP-M Strength Start: 07/16/21 09:44 Freq: Status: Active Protocol: Document 07/16/21 08:55 OF (Rec: 07/16/21 10:05 OF [email or web address]) Knee Strength Knee Manual Muscle Testing L Flexion (S2) 5 Normal Extension (L3) 5 Normal Comments well developed L quad R Flexion (S2) 3+ Fair+ Extension (L3) 3+ Fair+ PT-OP-Q Treatments Start: 07/16/21 09:44 Freq: Status: Active Protocol: Document 07/31/21 08:15 MB (Rec: 07/31/21 09:07 MB [id number]) Cardio Equipment Recumbent Bicycle Duration (Minutes) 10 Resistance 9 Therapeutic Exercises Sitting Exercises Self-massage with rolling pin Comments Divide thigh into thirds, see saw motion with rolling pin right vastus late Manual Therapy Treatment Other Other Manual Treatments STM right gastroc, medial hamstring and adductors distal to proximal and then vastus lateralis Black KT to support right knee --short c strip under patella and B I strips to support medial and lateral knee PT-OP-T Assessment and Plan Start: 07/16/21 09:44 Freq: Status: Active Protocol: Document 07/31/21 08:15 MB (Rec: 07/31/21 09:07 MB [id number]) Physical Therapy Assessment Rehab Potential Rehabilitation Potential Excellent Evaluation Complexity Number of Personal Factors/Comorbidities 0 Number of Body Systems Impaired 1-2 Clinical Presentation at Evaluation Stable Impairments Impairments Gait,Pain,ROM,Strength Goals pain Impairment pain in R knee with hiking/ walking Short Term Goal (STG) Pt will walk 2miles with pain <4/10 STG Duration 2 weeks Jail Goal (LTG) Pt will walk 4miles on uneven terrain with pain <4/10 in order to return to hiking LTG Duration 6 weeks R LE weakness Impairment R LE weakness Short Term Goal (STG) Pt will improve R knee extension strength to 4/5 STG Duration 2 weeks Jail Goal (LTG) Pt will improve LE strength to complete >14 sit to stands in 30sec LTG Duration 6 weeks ROM Impairment pt lacks R knee flexion Hand Ii Blocker Goal (LTG) Pt will improve R knee AROM flexion to 120 degrees. LTG Duration 6 weeks HEP Impairment Pt lacks HEP Short Term Goal (STG) Pt will be I with HEP for strengthening R LE STG Duration 2 weeks Assessment Summary Assessment Progressed manual work today and pt with a lot of tension on right gastroc, medial hamstring, adductors and vastus lateralis. Instructed pt in self-massage using rolling pin. Also initiated KT to support the right knee with hiking and may consider teaching pt self-taping in future treatments. Con't per plan below. Physical Therapy Plan Frequency and Duration Frequency of Treatment 2x/Week Duration of Treatment 6weeks Plan of Care Start Date 07/16/21 Plan of Care End Date 08/27/21 Therapeutic Interventions Therapeutic Interventions Gait Training,Home Exercise Program,Joint Mobilizations, Manual Therapy,Neuromuscular Re-education,Patient/Caregiver Education,Soft Tissue Mobilization,Therapeutic Activities,Therapeutic Exercises Next Visit Focus/Plan Next Note Type Treatment Note Next Visit Plan Assess response to KT and manual work, piriformis stretch for TFL and hip rotators, progress to tandem balance exercise to work on ankle stretegy, ankle DF and eversion strengthening with band
--- NOTE | 2021-08-05 09:02 | PT.OTN ---
Current Diagnoses Unilateral primary osteoarthritis, right knee (08/05/21) Physical Therapy Treatment Note PT-OP-A Visit Information Start: 07/16/21 09:44 Freq: Status: Active Protocol: Document 08/05/21 08:56 OF (Rec: 08/05/21 09:02 OF [id number]) Out-Patient Physical Therapy Visit Information Visit Information Visit Type Treatment Note Visit Start Time 08:07 Visit Stop Time 08:55 Total Visit Minutes 48 Visit Number 7 Evaluation Information Evaluation Date 07/16/21 PT-OP-B Current Condition Start: 07/16/21 09:44 Freq: Status: Active Protocol: Document 07/16/21 08:55 OF (Rec: 07/16/21 10:05 OF [email or web address]) Current Condition History of Current Condition Onset Date ~6weeks prior History of Current Condition Pt reports he was moving rounds of wood which were heavy, noticed swelling and pain in knee 1st day post. He has had difficulty hiking, walking, weightbearing since. He had a cortizone shot 5 days ago which has reduced swelling per pt Prior Treatments and Tests MRI describes medial meniscal tear, lateral tear, loss of medial compartment joint space and cartilage, popliteal cyst , normal cruciate ligaments and quad tendon. 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, active, hikes regularly PT-OP-C Subjective Start: 07/16/21 09:44 Freq: Status: Active Protocol: Document 08/05/21 08:56 OF (Rec: 08/05/21 09:02 OF [id number]) OP-PT Subjective Patient Comments Patient Comments Pt reports HEP as instructed, improved endurance with uneven terrain Patient Reported Progress Improving OP-PT Pain Assessment Pain Assessment Grid Paper Pain Assessment Grid Completed No: pt reports pain <1/10 PT-OP-K Range of Motion Start: 07/16/21 09:44 Freq: Status: Active Protocol: Document 07/16/21 08:55 OF (Rec: 07/16/21 10:05 OF [email or web address]) Knee Goniometric Range of Motion Knee L Knee ROM WFL Yes Flexion Active (degrees) 120 Extension Active (degrees) 180 R Knee ROM WFL Yes Patient Position Sitting Flexion Active (degrees) 115 Extension Active (degrees) 180 PT-OP-M Strength Start: 07/16/21 09:44 Freq: Status: Active Protocol: Document 07/16/21 08:55 OF (Rec: 07/16/21 10:05 OF [email or web address]) Knee Strength Knee Manual Muscle Testing L Flexion (S2) 5 Normal Extension (L3) 5 Normal Comments well developed L quad R Flexion (S2) 3+ Fair+ Extension (L3) 3+ Fair+ PT-OP-Q Treatments Start: 07/16/21 09:44 Freq: Status: Active Protocol: Document 08/05/21 08:56 OF (Rec: 08/05/21 09:02 OF [id number]) Cardio Equipment Bicycle (Upright) Duration (Minutes) 10 Resistance 10 Seat Position 6 Therapeutic Exercises Supine Exercises Jose stretch Side bilateral Reps/Minutes [id number] Comments cues for proper pelvic positoion, passive stretch not exercise Hamstring and AP stretch Side bilateral Comments 20-30 reps Bridge with band around knees Supine Exercise Name Can lift toes as needed Side bilateral Comments Level 3 band around knees, hold 1 minute at least Sitting Exercises knee ext machine Side bilateral Resistance 2 plates Comments alternate for single leg knee ext, cues for eccentric control Standing Exercises gastroc/soleus stretch Side bilateral Reps/Minutes [id number] hip abd Side bilateral Resistance TB3 Reps/Minutes 3x10 Comments cues to offload R LE with counter if needed Neuro Re-Education Treatment Balance Activities balance board Details red clips Reps/Duration 5min ant/post, 5min lateral, improved lateral weight shifting Self-Care/Home Management Treatment Education Patient Education Body Mechanics,Home Exercise Program PT-OP-T Assessment and Plan Start: 07/16/21 09:44 Freq: Status: Active Protocol: Document 08/05/21 08:56 OF (Rec: 08/05/21 09:02 OF [id number]) Physical Therapy Assessment Rehab Potential Rehabilitation Potential Excellent Evaluation Complexity Number of Personal Factors/Comorbidities 0 Number of Body Systems Impaired 1-2 Clinical Presentation at Evaluation Stable Impairments Impairments Gait,Pain,ROM,Strength Goals pain Impairment pain in R knee with hiking/ walking Short Term Goal (STG) Pt will walk 2miles with pain <4/10 STG Duration 2 weeks Nurse Advocate Goal (LTG) Pt will walk 4miles on uneven terrain with pain <4/10 in order to return to hiking LTG Duration 6 weeks R LE weakness Impairment R LE weakness Short Term Goal (STG) Pt will improve R knee extension strength to 4/5 STG Duration 2 weeks Nurse Advocate Goal (LTG) Pt will improve LE strength to complete >14 sit to stands in 30sec LTG Duration 6 weeks ROM Impairment pt lacks R knee flexion Nurse Advocate Goal (LTG) Pt will improve R knee AROM flexion to 120 degrees. LTG Duration 6 weeks HEP Impairment Pt lacks HEP Short Term Goal (STG) Pt will be I with HEP for strengthening R LE STG Duration 2 weeks Progress Towards Goals Progress Towards Goals Progressing Toward Goals Assessment Summary Assessment Sal reports improved ability to hike, walk downhill, and perform IADL. He requires cues for proper HEP performance, stretching positioning. He is awaiting massage/rolling pin arrival. Physical Therapy Plan Frequency and Duration Frequency of Treatment 2x/Week Duration of Treatment 6weeks Plan of Care Start Date 07/16/21 Plan of Care End Date 08/27/21 Therapeutic Interventions Therapeutic Interventions Gait Training,Home Exercise Program,Joint Mobilizations, Manual Therapy,Neuromuscular Re-education,Patient/Caregiver Education,Soft Tissue Mobilization,Therapeutic Activities,Therapeutic Exercises Next Visit Focus/Plan Next Note Type Treatment Note Next Visit Plan progress hip strengthening, reassess self massage, HEP
--- NOTE | 2021-08-12 10:13 | PT.OTN ---
Current Diagnoses Unilateral primary osteoarthritis, right knee (08/12/21) Physical Therapy Treatment Note PT-OP-A Visit Information Start: 07/16/21 09:44 Freq: Status: Active Protocol: Document 08/12/21 08:14 MB (Rec: 08/12/21 09:01 MB [id number]) Out-Patient Physical Therapy Visit Information Visit Information Visit Type Treatment Note Visit Start Time 08:14 Visit Stop Time 08:59 Total Visit Minutes 45 Visit Number 9 Evaluation Information Evaluation Date 07/16/21 PT-OP-B Current Condition Start: 07/16/21 09:44 Freq: Status: Active Protocol: Document 07/16/21 08:55 OF (Rec: 07/16/21 10:05 OF [email or web address]) Current Condition History of Current Condition Onset Date ~6weeks prior History of Current Condition Pt reports he was moving rounds of wood which were heavy, noticed swelling and pain in knee 1st day post. He has had difficulty hiking, walking, weightbearing since. He had a cortizone shot 5 days ago which has reduced swelling per pt Prior Treatments and Tests MRI describes medial meniscal tear, lateral tear, loss of medial compartment joint space and cartilage, popliteal cyst , normal cruciate ligaments and quad tendon. 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 When he bends down, there is a point where the pain is bad. It is in the anterior right knee and at the joint line. He sees Lindsey Lindsey, massage therapist, after PT today. PT-OP-K Range of Motion Start: 07/16/21 09:44 Freq: Status: Active Protocol: Document 07/16/21 08:55 OF (Rec: 07/16/21 10:05 OF [email or web address]) Knee Goniometric Range of Motion Knee L Knee ROM WFL Yes Flexion Active (degrees) 120 Extension Active (degrees) 180 R Knee ROM WFL Yes Patient Position Sitting Flexion Active (degrees) 115 Extension Active (degrees) 180 PT-OP-M Strength Start: 07/16/21 09:44 Freq: Status: Active Protocol: Document 07/16/21 08:55 OF (Rec: 07/16/21 10:05 OF [email or web address]) Knee Strength Knee Manual Muscle Testing L Flexion (S2) 5 Normal Extension (L3) 5 Normal Comments well developed L quad R Flexion (S2) 3+ Fair+ Extension (L3) 3+ Fair+ PT-OP-Q Treatments Start: 07/16/21 09:44 Freq: Status: Active Protocol: Document 08/12/21 08:14 MB (Rec: 08/12/21 09:01 MB [id number]) Cardio Equipment Bicycle (Upright) Duration (Minutes) 10 Resistance 14 Seat Position 7 Therapeutic Exercises Supine Exercises Jose stretch Side bilateral Comments 30 reps each side, opposite leg bent Sitting Exercises Sit to stands Comments No UE support, 16 reps in 30 sec and multiple trials for form, muscle recru Self-massage with rolling pin Side right Comments See saw motion PT-OP-T Assessment and Plan Start: 07/16/21 09:44 Freq: Status: Active Protocol: Document 08/12/21 08:14 MB (Rec: 08/12/21 09:01 MB [id number]) Physical Therapy Assessment Rehab Potential Rehabilitation Potential Excellent Evaluation Complexity Number of Personal Factors/Comorbidities 1-2 Number of Body Systems Impaired 1-2 Clinical Presentation at Evaluation Stable Impairments Impairments Gait,Pain,ROM,Strength Goals 6 Cpc Coder Goal (LTG) Pt will perform modified tree pose or SLS for 1 minute each foot to improve balance by . LTG Duration 3 weeks 5 Penitentiary Goal (LTG) Pt will hike [employer] twice with 4 or less/10 right knee pain by 08/28/21. LTG Duration 3 weeks pain Impairment pain in R knee with hiking/ walking Short Term Goal (STG) Pt will walk 2miles with pain <4/10 08/12/21: Met STG Duration 2 weeks Penitentiary Goal (LTG) Pt will walk 4miles on uneven terrain with pain <4/10 in order to return to hiking 08/12/21: Pt has not exposed himself to this yet LTG Duration 6 weeks R LE weakness Impairment R LE weakness Short Term Goal (STG) Pt will improve R knee extension strength to 4/5. 08/12/21: Right knee extension is 5/5 STG Duration 2 weeks Penitentiary Goal (LTG) Pt will improve LE strength to complete >14 sit to stands in 30sec 08/12/21: Pt performs 16 reps in 30 sec. LTG Duration 6 weeks ROM Impairment pt lacks R knee flexion Penitentiary Goal (LTG) Pt will improve R knee AROM flexion to 120 degrees. 08/12/21: Supine active right knee ROM is 0-125 deg, goal met LTG Duration 3 weeks HEP Impairment Pt lacks HEP Short Term Goal (STG) Pt will perform progressive HEP with I to improve flexibility, strength, balance , gait and pain by 08/28/21. 08/12/21: Pt it performing exercises intermittently, thinking about his walking form with hiking, is hiking and biking STG Duration 3 weeks Assessment Summary Assessment Progress note today and addressed all goals. Pt has progressed towards all PT goals including hiking, range of motion, exercise, sit to stands and strength. Advanced goals today. Pt leaves for [place] 09/02/21. He will con't to benefit from PT to progress exercises and improve pain. PT will include manual work. Physical Therapy Plan Frequency and Duration Frequency of Treatment 2x/Week Duration of Treatment 3 weeks Plan of Care Start Date 08/12/21 Plan of Care End Date 08/28/21 Therapeutic Interventions Therapeutic Interventions Gait Training,Home Exercise Program,Joint Mobilizations, Manual Therapy,Neuromuscular Re-education,Patient/Caregiver Education,Soft Tissue Mobilization,Therapeutic Activities,Therapeutic Exercises Next Visit Focus/Plan Next Note Type Treatment Note Next Visit Plan Consider standing balance exercises, manual work
--- NOTE | 2021-08-12 10:14 | PT.OPPOC ---
Physical, Occupational & Speech Therapy At [facility] Current Diagnoses Unilateral primary osteoarthritis, right knee (08/12/21) Visit Care Team Role Provider Type Rajat Uribe DO Attending Provider Physician Primary Care Provider Referring Provider Specialty: Family Practice Address: [address] [place] [address], [id number] Email: [email or web address] Of Care PT-OP-T Assessment and Plan Start: 07/16/21 09:44 Freq: Status: Active Protocol: Document 08/12/21 08:14 MB (Rec: 08/12/21 09:01 MB [id number]) Physical Therapy Assessment Rehab Potential Rehabilitation Potential Excellent Evaluation Complexity Number of Personal Factors/Comorbidities 1-2 Number of Body Systems Impaired 1-2 Clinical Presentation at Evaluation Stable Impairments Impairments Gait,Pain,ROM,Strength Goals 6 Chair Mender Goal (LTG) Pt will perform modified tree pose or SLS for 1 minute each foot to improve balance by . LTG Duration 3 weeks 5 Chair Mender Goal (LTG) Pt will hike [id number] twice with 4 or less/10 right knee pain by 08/28/21. LTG Duration 3 weeks pain Impairment pain in R knee with hiking/ walking Short Term Goal (STG) Pt will walk 2miles with pain <4/10 08/12/21: Met STG Duration 2 weeks Penitentiary Goal (LTG) Pt will walk 4miles on uneven terrain with pain <4/10 in order to return to hiking 08/12/21: Pt has not exposed himself to this yet LTG Duration 6 weeks R LE weakness Impairment R LE weakness Short Term Goal (STG) Pt will improve R knee extension strength to 4/5. 08/12/21: Right knee extension is 5/5 STG Duration 2 weeks Penitentiary Goal (LTG) Pt will improve LE strength to complete >14 sit to stands in 30sec 08/12/21: Pt performs 16 reps in 30 sec. LTG Duration 6 weeks ROM Impairment pt lacks R knee flexion Chair Mender Goal (LTG) Pt will improve R knee AROM flexion to 120 degrees. 08/12/21: Supine active right knee ROM is 0-125 deg, goal met LTG Duration 3 weeks HEP Impairment Pt lacks HEP Short Term Goal (STG) Pt will perform progressive HEP with I to improve flexibility, strength, balance , gait and pain by 08/28/21. 08/12/21: Pt it performing exercises intermittently, thinking about his walking form with hiking, is hiking and biking STG Duration 3 weeks Assessment Summary Assessment Progress note today and addressed all goals. Pt has progressed towards all PT goals including hiking, range of motion, exercise, sit to stands and strength. Advanced goals today. Pt leaves for [place] 09/02/21. He will con't to benefit from PT to progress exercises and improve pain. PT will include manual work. Physical Therapy Plan Frequency and Duration Frequency of Treatment 2x/Week Duration of Treatment 3 weeks Plan of Care Start Date 08/12/21 Plan of Care End Date 08/28/21 Therapeutic Interventions Therapeutic Interventions Gait Training,Home Exercise Program,Joint Mobilizations, Manual Therapy,Neuromuscular Re-education,Patient/Caregiver Education,Soft Tissue Mobilization,Therapeutic Activities,Therapeutic Exercises Next Visit Focus/Plan Next Note Type Treatment Note Next Visit Plan Consider standing balance exercises, manual work Plan of Care Dates Plan of Care Start Date 08/12/21 Plan of Care End Date 08/28/21 Electronically Signed by: Ashlyn Corbett, PT 08/12/21 1014 Please Sign and Return: I have reviewed this Plan of Care and certify that the skilled therapy services above are required to meet the patient?s needs. Physician Signature Date Printed Name and Credentials Clinical Instructor Signature Printed Name and Credentials
--- NOTE | 2021-08-14 09:00 | PT.OTN ---
Current Diagnoses Unilateral primary osteoarthritis, right knee (08/14/21) Physical Therapy Treatment Note PT-OP-A Visit Information Start: 07/16/21 09:44 Freq: Status: Active Protocol: Document 08/14/21 08:16 MB (Rec: 08/14/21 08:59 MB [id number]) Out-Patient Physical Therapy Visit Information Visit Information Visit Type Treatment Note Visit Start Time 08:16 Visit Stop Time 09:00 Total Visit Minutes 44 Visit Number 10 Evaluation Information Evaluation Date 07/16/21 PT-OP-B Current Condition Start: 07/16/21 09:44 Freq: Status: Active Protocol: Document 07/16/21 08:55 OF (Rec: 07/16/21 10:05 OF [email or web address]) Current Condition History of Current Condition Onset Date ~6weeks prior History of Current Condition Pt reports he was moving rounds of wood which were heavy, noticed swelling and pain in knee 1st day post. He has had difficulty hiking, walking, weightbearing since. He had a cortizone shot 5 days ago which has reduced swelling per pt Prior Treatments and Tests MRI describes medial meniscal tear, lateral tear, loss of medial compartment joint space and cartilage, popliteal cyst , normal cruciate ligaments and quad tendon. 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 It helped relax him. He doesn't do that enough. The sit to stand exercise was a revelation. He can stand up without his hands on a hard surface and uses his hands from a soft surface. PT-OP-K Range of Motion Start: 07/16/21 09:44 Freq: Status: Active Protocol: Document 07/16/21 08:55 OF (Rec: 07/16/21 10:05 OF [email or web address]) Knee Goniometric Range of Motion Knee L Knee ROM WFL Yes Flexion Active (degrees) 120 Extension Active (degrees) 180 R Knee ROM WFL Yes Patient Position Sitting Flexion Active (degrees) 115 Extension Active (degrees) 180 PT-OP-M Strength Start: 07/16/21 09:44 Freq: Status: Active Protocol: Document 07/16/21 08:55 OF (Rec: 07/16/21 10:05 OF [email or web address]) Knee Strength Knee Manual Muscle Testing L Flexion (S2) 5 Normal Extension (L3) 5 Normal Comments well developed L quad R Flexion (S2) 3+ Fair+ Extension (L3) 3+ Fair+ PT-OP-Q Treatments Start: 07/16/21 09:44 Freq: Status: Active Protocol: Document 08/14/21 08:16 MB (Rec: 08/14/21 08:59 MB [id number]) Cardio Equipment Bicycle (Upright) Duration (Minutes) 10 Resistance 18 Seat Position 6 Therapeutic Exercises Standing Exercises Crab walking and backward walking Side bilateral Equipment Used Level 3 band Comments Backward: cues to keep feet apart and toe down; crab: toes out, curing pickling packer fee Manual Therapy Treatment Other Other Manual Treatments STM right adductors and medial hamstring at proximal and distal femur, patellar mobs, MWM calf with pt performing active AP and PT perform TrP pressure PT-OP-T Assessment and Plan Start: 07/16/21 09:44 Freq: Status: Active Protocol: Document 08/14/21 08:16 MB (Rec: 08/14/21 08:59 MB [id number]) Physical Therapy Assessment Rehab Potential Rehabilitation Potential Excellent Evaluation Complexity Number of Personal Factors/Comorbidities 1-2 Number of Body Systems Impaired 1-2 Clinical Presentation at Evaluation Stable Impairments Impairments Gait,Pain,ROM,Strength Goals 6 Dredge Boat Engineer Goal (LTG) Pt will perform modified tree pose or SLS for 1 minute each foot to improve balance by . LTG Duration 3 weeks 5 Dredge Boat Engineer Goal (LTG) Pt will hike [employer] twice with 4 or less/10 right knee pain by 08/28/21. LTG Duration 3 weeks HEP Impairment Pt lacks HEP Short Term Goal (STG) Pt will perform progressive HEP with I to improve flexibility, strength, balance , gait and pain by 08/28/21. 08/12/21: Pt it performing exercises intermittently, thinking about his walking form with hiking, is hiking and biking STG Duration 3 weeks Assessment Summary Assessment Initiated manual work today and pt presents with increased tension in his right medial hamstring and adductors and medial gastroc. Con't manual work and exercise progression below. Physical Therapy Plan Frequency and Duration Frequency of Treatment 2x/Week Duration of Treatment 3 weeks Plan of Care Start Date 08/12/21 Plan of Care End Date 08/28/21 Therapeutic Interventions Therapeutic Interventions Gait Training,Home Exercise Program,Joint Mobilizations, Manual Therapy,Neuromuscular Re-education,Patient/Caregiver Education,Soft Tissue Mobilization,Therapeutic Activities,Therapeutic Exercises Next Visit Focus/Plan Next Note Type Treatment Note Next Visit Plan Consider standing balance exercises, calf stretch in standing, manual work
--- NOTE | 2021-08-20 09:08 | PT.OTN ---
Current Diagnoses Unilateral primary osteoarthritis, right knee (08/20/21) Physical Therapy Treatment Note PT-OP-A Visit Information Start: 07/16/21 09:44 Freq: Status: Active Protocol: Document 08/20/21 08:13 MB (Rec: 08/20/21 09:04 MB [id number]) Out-Patient Physical Therapy Visit Information Visit Information Visit Type Treatment Note Visit Start Time 08:13 Visit Stop Time 09:06 Total Visit Minutes 53 Visit Number 11 Evaluation Information Evaluation Date 07/16/21 PT-OP-B Current Condition Start: 07/16/21 09:44 Freq: Status: Active Protocol: Document 07/16/21 08:55 OF (Rec: 07/16/21 10:05 OF [email or web address]) Current Condition History of Current Condition Onset Date ~6weeks prior History of Current Condition Pt reports he was moving rounds of wood which were heavy, noticed swelling and pain in knee 1st day post. He has had difficulty hiking, walking, weightbearing since. He had a cortizone shot 5 days ago which has reduced swelling per pt Prior Treatments and Tests MRI describes medial meniscal tear, lateral tear, loss of medial compartment joint space and cartilage, popliteal cyst , normal cruciate ligaments and quad tendon. 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 He is happy with his progress. PT-OP-K Range of Motion Start: 07/16/21 09:44 Freq: Status: Active Protocol: Document 07/16/21 08:55 OF (Rec: 07/16/21 10:05 OF [email or web address]) Knee Goniometric Range of Motion Knee L Knee ROM WFL Yes Flexion Active (degrees) 120 Extension Active (degrees) 180 R Knee ROM WFL Yes Patient Position Sitting Flexion Active (degrees) 115 Extension Active (degrees) 180 PT-OP-M Strength Start: 07/16/21 09:44 Freq: Status: Active Protocol: Document 07/16/21 08:55 OF (Rec: 07/16/21 10:05 OF [email or web address]) Knee Strength Knee Manual Muscle Testing L Flexion (S2) 5 Normal Extension (L3) 5 Normal Comments well developed L quad R Flexion (S2) 3+ Fair+ Extension (L3) 3+ Fair+ PT-OP-Q Treatments Start: 07/16/21 09:44 Freq: Status: Active Protocol: Document 08/20/21 08:13 MB (Rec: 08/20/21 09:04 MB [id number]) Cardio Equipment Bicycle (Upright) Duration (Minutes) 15 Resistance 18-24 Seat Position 4 Therapeutic Exercises Supine Exercises Jose stretch Side bilateral Comments 45 sec, 2 reps each Hamstring and AP stretch Side bilateral Comments 1 rep each leg with AP Bridge with band around knees Side bilateral Resistance Level 3 band Comments Pt on heels and pressing out Sitting Exercises Sit to stands Comments Performs well today and slowly , up to 10 reps Self-massage with rolling pin Comments Pt verbalizes understanding LAQ Side bilateral Resistance Level 3 band Comments 2 reps with 10 APs Standing Exercises Tandem standing Side bilateral Comments Trouble getting into position and then challenging once in it Mini squats with band around knees Side bilateral Equipment Used Level 3 band around knees Crab walking and backward walking Side bilateral Resistance Level 3 band Comments Performed side stepping and backward walking, many reps gastroc/soleus stretch Side bilateral Comments Leg straight and bent PT-OP-T Assessment and Plan Start: 07/16/21 09:44 Freq: Status: Active Protocol: Document 08/20/21 08:13 MB (Rec: 08/20/21 09:04 MB [id number]) Physical Therapy Assessment Rehab Potential Rehabilitation Potential Excellent Evaluation Complexity Number of Personal Factors/Comorbidities 1-2 Number of Body Systems Impaired 1-2 Clinical Presentation at Evaluation Stable Impairments Impairments Gait,Pain,ROM,Strength Goals 6 Jail Goal (LTG) Pt will perform modified tree pose or SLS for 1 minute each foot to improve balance by . LTG Duration 3 weeks 5 Jail Goal (LTG) Pt will hike [employer] twice with 4 or less/10 right knee pain by 08/28/21. 08/20/21: Pt states he hiked [place] twice over the weekend and had no pain. LTG Duration Met HEP Impairment Pt lacks HEP Short Term Goal (STG) Pt will perform progressive HEP with I to improve flexibility, strength, balance , gait and pain by 08/28/21. 08/12/21: Pt it performing exercises intermittently, thinking about his walking form with hiking, is hiking and biking STG Duration 3 weeks Assessment Summary Assessment Reviewed pt's exercises today and progressed stretching and balance exercises today and pt performs well. Consider Trauma Release exercises in the future. Did provide pt with handout about thigh high compression hose, 15-20 mmHG today that he could get to wear on the plane. Physical Therapy Plan Frequency and Duration Frequency of Treatment 2x/Week Duration of Treatment 3 weeks Plan of Care Start Date 08/12/21 Plan of Care End Date 08/28/21 Therapeutic Interventions Therapeutic Interventions Gait Training,Home Exercise Program,Joint Mobilizations, Manual Therapy,Neuromuscular Re-education,Patient/Caregiver Education,Soft Tissue Mobilization,Therapeutic Activities,Therapeutic Exercises Next Visit Focus/Plan Next Note Type Treatment Note Next Visit Plan Consider Trauma Release Exercises
--- NOTE | 2021-08-26 09:03 | PT.OTN ---
Current Diagnoses Unilateral primary osteoarthritis, right knee (08/26/21) Physical Therapy Treatment Note PT-OP-A Visit Information Start: 07/16/21 09:44 Freq: Status: Active Protocol: Document 08/26/21 08:15 MB (Rec: 08/26/21 09:02 MB [id number]) Out-Patient Physical Therapy Visit Information Visit Information Visit Type Treatment Note Visit Start Time 08:15 Visit Stop Time 08:53 Total Visit Minutes 38 Visit Number 12 Evaluation Information Evaluation Date 07/16/21 PT-OP-B Current Condition Start: 07/16/21 09:44 Freq: Status: Active Protocol: Document 07/16/21 08:55 OF (Rec: 07/16/21 10:05 OF [email or web address]) Current Condition History of Current Condition Onset Date ~6weeks prior History of Current Condition Pt reports he was moving rounds of wood which were heavy, noticed swelling and pain in knee 1st day post. He has had difficulty hiking, walking, weightbearing since. He had a cortizone shot 5 days ago which has reduced swelling per pt Prior Treatments and Tests MRI describes medial meniscal tear, lateral tear, loss of medial compartment joint space and cartilage, popliteal cyst , normal cruciate ligaments and quad tendon. 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 He pushed a wheelbarrow full of manure and that was a little troubling. He is preparing for the migration to [place]. PT-OP-K Range of Motion Start: 07/16/21 09:44 Freq: Status: Active Protocol: Document 07/16/21 08:55 OF (Rec: 07/16/21 10:05 OF [email or web address]) Knee Goniometric Range of Motion Knee L Knee ROM WFL Yes Flexion Active (degrees) 120 Extension Active (degrees) 180 R Knee ROM WFL Yes Patient Position Sitting Flexion Active (degrees) 115 Extension Active (degrees) 180 PT-OP-M Strength Start: 07/16/21 09:44 Freq: Status: Active Protocol: Document 07/16/21 08:55 OF (Rec: 07/16/21 10:05 OF [email or web address]) Knee Strength Knee Manual Muscle Testing L Flexion (S2) 5 Normal Extension (L3) 5 Normal Comments well developed L quad R Flexion (S2) 3+ Fair+ Extension (L3) 3+ Fair+ PT-OP-Q Treatments Start: 07/16/21 09:44 Freq: Status: Active Protocol: Document 08/26/21 08:15 MB (Rec: 08/26/21 09:02 MB [id number]) Cardio Equipment Bicycle (Upright) Duration (Minutes) 20 Resistance 22 Seat Position 7 Other Pt does arrive early to start on bike and PT then starts early as well Therapeutic Exercises Standing Exercises Trauma release exercises Side bilateral Comments Performed all exercises, cues for form and care with wall hold PT-OP-T Assessment and Plan Start: 07/16/21 09:44 Freq: Status: Active Protocol: Document 08/26/21 08:15 MB (Rec: 08/26/21 09:02 MB [id number]) Physical Therapy Assessment Rehab Potential Rehabilitation Potential Excellent Evaluation Complexity Number of Personal Factors/Comorbidities 1-2 Number of Body Systems Impaired 1-2 Clinical Presentation at Evaluation Stable Impairments Impairments Gait,Pain,ROM,Strength Goals 6 Intermediate Goal (LTG) Pt will perform modified tree pose or SLS for 1 minute each foot to improve balance by . LTG Duration 3 weeks 5 Intermediate Goal (LTG) Pt will hike [place] twice with 4 or less/10 right knee pain by 08/28/21. 08/20/21: Pt states he hiked a harder mountain twice over the weekend and had no pain. LTG Duration Met HEP Impairment Pt lacks HEP Short Term Goal (STG) Pt will perform progressive HEP with I to improve flexibility, strength, balance , gait and pain by 08/28/21. 08/12/21: Pt it performing exercises intermittently, thinking about his walking form with hiking, is hiking and biking STG Duration 3 weeks Assessment Summary Assessment Progressed Trauma release exercises today. Anticipate pt will be ready to d/c next treatment date. Physical Therapy Plan Frequency and Duration Frequency of Treatment 2x/Week Duration of Treatment 3 weeks Plan of Care Start Date 08/12/21 Plan of Care End Date 08/28/21 Therapeutic Interventions Therapeutic Interventions Gait Training,Home Exercise Program,Joint Mobilizations, Manual Therapy,Neuromuscular Re-education,Patient/Caregiver Education,Soft Tissue Mobilization,Therapeutic Activities,Therapeutic Exercises Next Visit Focus/Plan Next Note Type Discharge Summary
--- NOTE | 2021-08-28 08:58 | PT.OTN ---
Current Diagnoses Unilateral primary osteoarthritis, right knee (08/28/21) Physical Therapy Treatment Note PT-OP-A Visit Information Start: 07/16/21 09:44 Freq: Status: Active Protocol: Document 08/28/21 08:16 MB (Rec: 08/28/21 08:58 MB [id number]) Out-Patient Physical Therapy Visit Information Visit Information Visit Type Treatment Note Visit Start Time 08:13 Visit Stop Time 08:51 Total Visit Minutes 38 Visit Number 13 Evaluation Information Evaluation Date 07/16/21 PT-OP-B Current Condition Start: 07/16/21 09:44 Freq: Status: Active Protocol: Document 07/16/21 08:55 OF (Rec: 07/16/21 10:05 OF [email or web address]) Current Condition History of Current Condition Onset Date ~6weeks prior History of Current Condition Pt reports he was moving rounds of wood which were heavy, noticed swelling and pain in knee 1st day post. He has had difficulty hiking, walking, weightbearing since. He had a cortizone shot 5 days ago which has reduced swelling per pt Prior Treatments and Tests MRI describes medial meniscal tear, lateral tear, loss of medial compartment joint space and cartilage, popliteal cyst , normal cruciate ligaments and quad tendon. 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 PT-OP-K Range of Motion Start: 07/16/21 09:44 Freq: Status: Active Protocol: Document 07/16/21 08:55 OF (Rec: 07/16/21 10:05 OF [email or web address]) Knee Goniometric Range of Motion Knee L Knee ROM WFL Yes Flexion Active (degrees) 120 Extension Active (degrees) 180 R Knee ROM WFL Yes Patient Position Sitting Flexion Active (degrees) 115 Extension Active (degrees) 180 PT-OP-M Strength Start: 07/16/21 09:44 Freq: Status: Active Protocol: Document 07/16/21 08:55 OF (Rec: 07/16/21 10:05 OF [email or web address]) Knee Strength Knee Manual Muscle Testing L Flexion (S2) 5 Normal Extension (L3) 5 Normal Comments well developed L quad R Flexion (S2) 3+ Fair+ Extension (L3) 3+ Fair+ PT-OP-Q Treatments Start: 07/16/21 09:44 Freq: Status: Active Protocol: Document 08/28/21 08:16 MB (Rec: 08/28/21 08:58 MB [id number]) Cardio Equipment Bicycle (Upright) Duration (Minutes) 15 Resistance 20-22 Seat Position 6 Other 9' before treatment Therapeutic Exercises Standing Exercises Trauma release exercises Side bilateral Comments Performed all exercises and cues for form and right knee safety Tandem standing Side bilateral Comments Improvement today Crab walking and backward walking Side bilateral Comments Level 3 band, crab walking today, cues for form PT-OP-T Assessment and Plan Start: 07/16/21 09:44 Freq: Status: Active Protocol: Document 08/28/21 08:16 MB (Rec: 08/28/21 08:58 MB [id number]) Physical Therapy Assessment Rehab Potential Rehabilitation Potential Excellent Evaluation Complexity Number of Personal Factors/Comorbidities 1-2 Number of Body Systems Impaired 1-2 Clinical Presentation at Evaluation Stable Impairments Impairments Gait,Pain,ROM,Strength Goals 6 Psychometrist Goal (LTG) Pt will perform modified tree pose or SLS for 1 minute each foot to improve balance by . 08/28/21: 10 sec x2 left foot, 1' x1 right leg LTG Duration Progressed towards goals 5 Psychometrist Goal (LTG) Pt will hike [place] twice with 4 or less/10 right knee pain by 08/28/21. 08/20/21: Pt states he hiked a harder mountain twice over the weekend and had no pain. LTG Duration Met HEP Impairment Pt lacks HEP Short Term Goal (STG) Pt will perform progressive HEP with I to improve flexibility, strength, balance , gait and pain by 08/28/21. 08/28/21: Pt has met exercise goal and is performing progressive GRACIELA STG Duration Met Assessment Summary Assessment Pt has met hiking and HEP goals. He has progressed towards balance goal and has balance exercises for home. He is ready for d/c. Will d/c PT .
== END 2021-09-18 14:16 ==
LOC: PHYS 08:15
PROVIDERS: PCP Family Medicine; Referring Provider Family Medicine; Visit Provider Family Medicine
DX: M17.11 Unilateral primary osteoarthritis, right knee (principal)
CPT/HCPCS: 97110; 97112; 97140; 97161

== ENCOUNTER 2022-04-20 18:34 | Emergency (ER) | payer MEDICARE, SELFPAY ==
[2022-04-20] VITALS (7 sets, daily range): BP systolic 147–165; BP diastolic 68–90; PULSE 56–68; RESP 17; TEMP 36.6; O2SAT 98–100; BMI 28.7
--- NOTE | 2022-04-20 18:46 | DI.RAD.S_ITS ---
PROCEDURE: XR FOREARM LT 2V INDICATIONS: fall from ladder TECHNIQUE: 2 views of the forearm were acquired. COMPARISON: None. FINDINGS: Bones: No fracture. Grossly anatomic alignment of the wrist and elbow. No suspicious bony lesions. Soft tissues: No suspicious soft tissue calcifications or masses. IMPRESSION: No fracture. Dictated by: Paco Alvarez M.D. on 04/20/2022 at 19:37 Approved by: Paco Alvarez M.D. on 04/20/2022 at 19:38
--- NOTE | 2022-04-20 18:46 | DI.CT.S_ITS ---
PROCEDURE: CT HEAD/BRAIN WO CON INDICATIONS: fall from ladder TECHNIQUE: Noncontrast 4.5 mm thick angled axial sections acquired from the foramen magnum to the vertex, with coronal and sagittal reformats. For radiation dose reduction, the following was used: automated exposure control, adjustment of mA and/or kV according to patient size. COMPARISON: None. FINDINGS: Image quality: Excellent. CSF spaces: Basal cisterns are patent. No extra-axial fluid collections. Ventricles are normal in size and shape. Brain: No midline shift. No intracranial masses or hemorrhage. Duncan-white matter interface is normal. Skull and face: Calvarium and visualized facial bones are intact, without suspicious lesions. Posterior parietal scalp hematoma Sinuses: Visualized sinuses and mastoids are clear. IMPRESSION: Parietal scalp hematoma without underlying skull fracture or intracranial hemorrhage Approved by: Carlin Wilkins M.D. on 04/20/2022 at 18:21
--- NOTE | 2022-04-20 18:46 | DI.RAD.S_ITS ---
PROCEDURE: XR PELVIS 1-2V INDICATIONS: fall from ladder TECHNIQUE: Single view(s) of the pelvis acquired. COMPARISON: None. FINDINGS: Bones: No fractures or dislocations. No suspicious bony lesions. Moderate bilateral acetabular joint space narrowing and small marginal osteophytes Soft tissues: Visualized bowel gas pattern is normal. No suspicious soft tissue calcifications. IMPRESSION: Osteoarthritis without fracture Approved by: Carlin Wilkins M.D. on 04/20/2022 at 18:15
--- NOTE | 2022-04-20 18:46 | ED_ITS ---
HPI - General Adult General Chief complaint: Trauma Stated complaint: Fall from ladder 8 feet Time Seen by Provider: 04/20/22 18:45 Source: patient Mode of arrival: EMS Limitations: no limitations History of Present Illness HPI narrative: Patient is a 68-year-old male who arrives by EMS for evaluation of injuries that he sustained when he fell off of his roof. He was on his roof brushing some things off of it. He states that he was trying to come down off the roof. He was trying to come down the ladder when the ladder slipped. He did get his left arm caught in 1 of the ladder rungs. He did hit his head. No loss of conscious. Not on blood thinners. 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 No other injuries reported. Related Data Allergies Allergy/AdvReac Type Severity Reaction Status Date / Time No Known Drug Allergies Allergy Verified 08/22/21 09:44 Review of Systems Review of Systems ROS Unobtainable: All systems reviewed & are unremarkable except as noted in HPI and below Patient History Medical History COPD (chronic obstructive pulmonary disease) Degenerative joint disease of knee, right Neuropathy Preventative health care Seborrheic keratoses Social History household members: spouse Smoking Status: Former smoker Tobacco: How many years used: 15 alcohol intake: current substance use type: does not use Smoking Status: Former smoker alcohol intake frequency: 0-2 drinks per day Substance Use Type: does not use Exam Initial Vital Signs Initial Vital Signs: Vital Signs Pulse Rate 66 04/20/22 18:47 Pulse Oximetry 98 04/20/22 18:47 Const General: cooperative, comfortable and well developed HENMT Other HENMT:: Limited evaluation of the scalp secondary to the cervical collar in place. There is least an abrasion on the occipital portion. Chest Chest: normal inspection of the chest Resp Effort & Inspection: normal respiratory effort Auscultation: clear to auscultation bilaterally Cardio Rate: regular rate Rhythm: regular rhythm GI Inspection: normal to inspection Palpation: soft and No tender Back/Spine/Pelvis Cervical Spine: collar present Thoracic/Lumbar Spine: No thoracic spinal tenderness and No lumbar spinal tenderness Skin Other: Skin injuries to the scalp, contusions to his right forearm Neuro General: patient alert, patient awake, patient oriented x3 and moves all extremities Extrem Other: Contusions and some swelling to the right forearm. He can flex and extend at the wrist and the elbow without discomfort. His pelvis is stable. Lower extremities unremarkable. Left upper extremity unremarkable. Psych Appearance: grossly normal and well kempt Procedures FAST Exam FAST Exam 1: Fluid in Morison's pouch: No Fluid in Splenorenal Junction: No Fluid around bladder, Transverse view: No Fluid around bladder, Sagittal view: No Fluid in Pericardial Sac: No Gross Wall Motion Abnormality: No Study normal for this patient: Yes Images saved for further review: No Scores GCS Dows coma scale eye opening: Spontaneous Alejandro coma scale verbal response: Orientated Dows coma scale motor response: Obey commands Alejandro coma scale total score: 15 Course Orders Ordered: ED Orders 04/20/22 18:46 CT head/brain wo con Stat XR forearm LT 2V Stat XR pelvis 1-2V Stat 04/20/22 18:47 CT cervical spine wo con Stat XR chest 1V Stat 04/20/22 19:19 XR forearm RT 2V Stat 04/20/22 19:20 Complete Blood Count AUTO DIFF Stat Comprehensive Metabolic Panel Stat Ethanol (ETOH) Stat Lipase Stat Vital Signs Vital signs: Vital Signs - 8 hr 04/20/22 20:00 04/20/22 20:01 04/20/22 20:01 Pulse Rate 68 68 Blood Pressure 165/71 H Pulse Oximetry 98 98 Medical Decision Making Lab Data Lab results reviewed: Yes I reviewed the patient's lab results. Result diagrams: 04/20/22 19:20 04/20/22 19:20 Labs: Lab Results 04/20/22 04/20/22 Range/Units 19:20 19:20 WBC 10.0 (4.5-11.0) X10^3/uL RBC 4.48 L (4.5-5.9) X10^6/uL Hgb 14.1 (13.5-17.5) g/dL Hct 41.7 (41-53) % MCV 93.1 (80-100) fL MCH 31.5 (26-34) PG MCHC 33.9 (30-36) % RDW 14.2 (11.6-14.8) % Plt Count 171 (150-400) X10^3/uL Neut % (Auto) 79.3 H (50-75) % Lymph % (Auto) 12.7 L (25-40) % Osborne % (Auto) 7.0 (3-14) % Eos % (Auto) 0.7 L (2-4) % Baso % (Auto) 0.3 (0-2) % Neut # (Auto) 7900 H (1459-8129) /uL Lymph # (Auto) 1300 (5994-2354) /uL Osborne # (Auto) 700 (0-900) /uL Eos # (Auto) 100 (0-450) /uL Baso # (Auto) 0 (0-100) /uL Sodium 134 L (137-145) mmol/L Potassium 4.1 (3.4-5.1) mmol/L Chloride 103 (98-107) mmol/L Carbon Dioxide 24 (22-32) mmol/L BUN 24 H (9-20) mg/dL Creatinine 1.20 (0.66-1.25) mg/dL Estimated GFR > 60 (>60) mL/min BUN/Creatinine Ratio 20.0 (6-22) Glucose 100 (80-110) mg/dL Calcium 9.1 (8.4-10.2) mg/dL Total Bilirubin 0.6 (0.2-1.3) mg/dL AST 36 (17-59) IU/L ALT 21 (<50) IU/L Alkaline Phosphatase 63 (38-126) U/L Total Protein 7.0 (6.3-8.2) g/dL Albumin 4.0 (3.5-5.0) g/dL Globulin 3.0 (1.7-4.1) g/dL Albumin/Globulin Ratio 1.3 (1.0-2.8) Lipase 102 (23-300) U/L Ethyl Alcohol < 10 ( - 10) mg/dL Imaging Data CT scan - head: Radiologist's Impression: [address] [address] [address] Scan Report Signed Patient: Sal Mercer MR#: [id number] : 1945 Acct:[id number] Age/Sex: 76 / M Date of Service: 04/20/22 Loc: ED Accession Number: [id number] ?? Procedure: CT head/brain wo con Ordering Provider: Ryan Gallardo D.O. PROCEDURE:? CT HEAD/BRAIN WO CON ? INDICATIONS:? fall from ladder ? TECHNIQUE:? Noncontrast 4.5 mm thick angled axial sections acquired from the foramen magnum to the vertex, with coronal and sagittal reformats.? For radiation dose reduction, the following was used:? automated exposure control, adjustment of mA and/or kV according to patient size.? ? COMPARISON:? None. ? FINDINGS:? Image quality:? Excellent.? ? CSF spaces:? Basal cisterns are patent.? No extra-axial fluid collections.? Ventricles are normal in size and shape.? ? Brain:? No midline shift.? No intracranial masses or hemorrhage.? Duncan-white matter interface is normal.? ? Skull and face:? Calvarium and visualized facial bones are intact, without suspicious lesions.? Posterior parietal scalp hematoma ? Sinuses:? Visualized sinuses and mastoids are clear.? ? IMPRESSION:? ? Parietal scalp hematoma without underlying skull fracture or intracranial hemorrhage ? ? ? Approved by: Carlin Wilkins M.D. on 04/20/2022 at 18:21? CT - cervical spine: Radiologist's Impression: [place] [address] CT Scan Report Signed Patient: Sal Mercer MR#: [id number] : 1945 Acct:[id number] Age/Sex: 76 / M Date of Service: 04/20/22 Loc: ED Accession Number: [id number] ?? Procedure: CT cervical spine wo con Ordering Provider: Ryan Gallardo D.O. PROCEDURE:? CT CERVICAL SPINE WO CON ? INDICATIONS:? fall from ladder ? TECHNIQUE:? Noncontrast 3 mm thick sections acquired from the skull base to the T4 level.? Sagittal and coronal reformats were then constructed.? For radiation dose reduction, the following was used:? automated exposure control, adjustment of mA and/or kV according to patient size.? ? COMPARISON:? None. ? FINDINGS:? Image quality:? Excellent.? ? Bones:? No fractures or dislocations.? Visualized superior ribs are intact.? Disc space narrowing and posterior osteophytes sosa hypertrophic facet and uncovertebral joints present throughout the exam resulting in moderate central stenosis at C3-4, C4- 5, C5-6 and C6-7 ? Soft tissues:? Prevertebral soft tissues are normal in thickness.? No paravertebral hematomas.? No apical pneumothoraces.? ? ? IMPRESSION:? ? No evidence of fracture or traumatic malalignment. ? 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 Approved by: Carlin Wilkins M.D. on 04/20/2022 at 18:19? Chest x-ray: Radiologist's Impression: [address] [address] XRay Report Signed Patient: Sal Mercer MR#: [id number] : 1945 Acct:[id number] Age/Sex: 76 / M Date of Service: 04/20/22 Loc: ED Accession Number: [id number] ?? Procedure: XR chest 1V Ordering Provider: Ryan Gallardo D.O. PROCEDURE:? XR CHEST 1V ? INDICATIONS:? fall from ladder ? TECHNIQUE:? One view of the chest was acquired.? ? COMPARISON:? None. ? FINDINGS:? ? Surgical changes and devices:? None.? ? Lungs and pleura:? Lungs are clear.? No pleural effusions or pneumothorax.? ? Mediastinum:? Mediastinal contours appear normal.? Heart size is normal.? ? Bones and chest wall:? No suspicious bony lesions.? Overlying soft tissues appear unremarkable.? ? IMPRESSION:? No acute cardiopulmonary findings ? ? ? Approved by: Carlin Wilkins M.D. on 04/20/2022 at 18:14? Pelvis x-ray: Radiologist's Impression: [address] [address] XRay Report Signed Patient: Sal Mercer MR#: [id number] : 1945 Acct:[id number] Age/Sex: 76 / M Date of Service: 04/20/22 Loc: ED Accession Number: [id number] ?? Procedure: XR pelvis 1-2V Ordering Provider: Ryan Gallardo D.O. PROCEDURE:? XR PELVIS 1-2V ? INDICATIONS:? fall from ladder ? TECHNIQUE:? Single view(s) of the pelvis acquired.? ? COMPARISON:? None. ? FINDINGS:? ? Bones:? No fractures or dislocations.? No suspicious bony lesions.? Moderate bilateral acetabular joint space narrowing and small marginal osteophytes ? Soft tissues:? Visualized bowel gas pattern is normal.? No suspicious soft tissue calcifications.? ? IMPRESSION:? ? Osteoarthritis without fracture ? Approved by: Carlin Wilkins M.D. on 04/20/2022 at 18:15? Extremity x-ray #1: Radiologist's Impression: [address] [address] XRay Report Signed Patient: Sal Mercer MR#: [id number] : 1945 Acct:[id number] Age/Sex: 76 / M Date of Service: 04/20/22 Loc: ED Accession Number: [id number] ?? Procedure: XR forearm LT 2V Ordering Provider: Ryan Gallardo D.O. PROCEDURE:? XR FOREARM LT 2V ? INDICATIONS:? fall from ladder ? TECHNIQUE:? 2 views of the forearm were acquired.? ? COMPARISON:? None. ? FINDINGS:? ? Bones:? No fracture.? Grossly anatomic alignment of the wrist and elbow.? No suspicious bony lesions.? ? Soft tissues:? No suspicious soft tissue calcifications or masses.? ? ? IMPRESSION:? No fracture. ? Dictated by: Paco Alvarez M.D. on 04/20/2022 at 19:37 ? ? Approved by: Paco Alvarez M.D. on 04/20/2022 at 19:38?? Extremity x-ray #2: Radiologist's Impression: [address] [address] XRay Report Signed Patient: Sal Mercer MR#: [id number] : 1945 Acct:[id number] Age/Sex: 76 / M Date of Service: 04/20/22 Loc: ED Accession Number: [id number] ?? Procedure: XR forearm RT 2V Ordering Provider: Ryan Gallardo D.O. PROCEDURE:? XR FOREARM RT 2V ? INDICATIONS:? Trauma, fall from ladder ? TECHNIQUE:? 2 views of the forearm were acquired.? ? COMPARISON:? None. ? FINDINGS:? ? No fracture.? Grossly anatomic alignment of the wrist and elbow.? No radiopaque foreign body. ? ? IMPRESSION:? No fracture. ? Dictated by: Paco Alvarez M.D. on 04/20/2022 at 19:55 ? ? Approved by: Paco Alvarez M.D. on 04/20/2022 at 19:55? MDM Narrative Medical decision making narrative: CT scans and x-rays are all unremarkable. His fast exam is negative. His cervical collar was removed. Patient decided that he like to leave the emergency department prior to fully evaluating his potential scalp injuries. He stated that [place] I did discuss with him that without properly cleaning the area there could potentially be a laceration that would require suturing/roderick. The patient expressed understanding of this and he still would like to be discharged. Patient is alert oriented x3. GCS of 15. In my opinion had capacity to make decisions. Will have him contact his primary doctor for follow-up he was told he could return to the emergency department for new or worsening symptoms. Discharge Plan Departure Patient Disposition: Home Clinical Impression: Fall, Contusion of arm, right, Scalp injury Instructions: Closed Head Injury Activity Restrictions/Additional Instructions: You have opted to be discharged from the hospital prior to having your scalp injuries fully evaluated you could potentially have a laceration that needs closure and you expressed understanding of this. Your CT scans and x-rays show no signs of fractures or bleeding inside of your head. I do recommend you contact your primary doctor for a follow-up. You can sleep like normal and eat like normal. You can take Tylenol for any discomfort. Return to the emergency department for any new or worsening symptoms. Referrals: Rajat Uribe, [Primary Care Provider] - Visit Report Forms: Patient Portal/API
--- NOTE | 2022-04-20 18:47 | DI.RAD.S_ITS ---
PROCEDURE: XR CHEST 1V INDICATIONS: fall from ladder TECHNIQUE: One view of the chest was acquired. COMPARISON: None. FINDINGS: Surgical changes and devices: None. Lungs and pleura: Lungs are clear. No pleural effusions or pneumothorax. Mediastinum: Mediastinal contours appear normal. Heart size is normal. Bones and chest wall: No suspicious bony lesions. Overlying soft tissues appear unremarkable. IMPRESSION: No acute cardiopulmonary findings Approved by: Carlin Wilkins M.D. on 04/20/2022 at 18:14
--- NOTE | 2022-04-20 18:47 | DI.CT.S_ITS ---
PROCEDURE: CT CERVICAL SPINE WO CON INDICATIONS: fall from ladder TECHNIQUE: Noncontrast 3 mm thick sections acquired from the skull base to the T4 level. Sagittal and coronal reformats were then constructed. For radiation dose reduction, the following was used: automated exposure control, adjustment of mA and/or kV according to patient size. COMPARISON: None. FINDINGS: Image quality: Excellent. Bones: No fractures or dislocations. Visualized superior ribs are intact. Disc space narrowing and posterior osteophytes sosa hypertrophic facet and uncovertebral joints present throughout the exam resulting in moderate central stenosis at C3-4, C4-5, C5-6 and C6-7 Soft tissues: Prevertebral soft tissues are normal in thickness. No paravertebral hematomas. No apical pneumothoraces. IMPRESSION: No evidence of fracture or traumatic malalignment. Multilevel degenerative disc disease and arthropathy results in moderate central stenosis as above Approved by: Carlin Wilkins M.D. on 04/20/2022 at 18:19
--- NOTE | 2022-04-20 19:19 | DI.RAD.S_ITS ---
PROCEDURE: XR FOREARM RT 2V INDICATIONS: Trauma, fall from ladder TECHNIQUE: 2 views of the forearm were acquired. COMPARISON: None. FINDINGS: No fracture. Grossly anatomic alignment of the wrist and elbow. No radiopaque foreign body. IMPRESSION: No fracture. Dictated by: Paco Alvarez M.D. on 04/20/2022 at 19:55 Approved by: Paco Alvarez M.D. on 04/20/2022 at 19:55
[2022-04-20 19:26] LABS: Add Manual Diff / Slide Review NO; Basophils Absolute Auto 0 /uL (0-100); Basophils Percent Auto 0.3 % (0-2); Eosinophils Absolute Auto 100 /uL (0-450); Eosinophils Percent Auto 0.7 % (2-4); Hematocrit 41.7 % (41-53); Hemoglobin 14.1 g/dL (13.5-17.5); Lymphocytes Absolute Auto 1300 /uL (1100-4500); Lymphocytes Percent Auto 12.7 % (25-40); Mean Corpuscular HGB Conc 33.9 % (30-36); Mean Corpuscular Hemoglobin 31.5 PG (26-34); Mean Corpuscular Volume 93.1 fL (80-100); Monocytes Absolute Auto 700 /uL (0-900); Neutrophils Absolute Auto 7900 /uL (1500-7000); Neutrophils Percent Auto 79.3 % (50-75); Platelet Count 171 X10^3/uL (150-400); Red Blood Cell Count 4.48 X10^6/uL (4.5-5.9); Red Cell Distribution Width 14.2 % (11.6-14.8)
[2022-04-20 19:39] LABS: Alanine Aminotransferase 21 IU/L (<50); Albumin Globulin Ratio 1.3 (1.0-2.8); Alkaline Phosphatase 63 U/L (38-126); Aspartate Aminotransferase 36 IU/L (17-59); Bilirubin Total 0.6 mg/dL (0.2-1.3); Blood Urea Nitrogen 24 mg/dL (9-20); Calcium 9.1 mg/dL (8.4-10.2); Carbon Dioxide 24 mmol/L (22-32); Chloride 103 mmol/L (98-107); Estimated Glomerular Filt Rate > 60 mL/min (>60); Ethanol (ETOH) < 10 mg/dL; Glucose 100 mg/dL (80-110); HEMOLYSIS < 15 (0-50); Lipase 102 U/L (23-300); Potassium 4.1 mmol/L (3.4-5.1); Sodium 134 mmol/L (137-145)
== END 2022-04-20 20:12 | disposition home or self-care (01) ==
PROVIDERS: Emergency Provider Emergency Medicine; PCP Family Medicine
DX: S40.021A Contusion of right upper arm, initial encounter (principal); S09.90XA Unspecified injury of head, initial encounter; W11.XXXA Fall on and from ladder, initial encounter
CPT/HCPCS: 70450; 71045; 72125; 72170; 73090; 80053; 80320; 83690; 85025; 99284; 99291; 99292; G0390

== ENCOUNTER → 2022-05-19 11:50 | Outpatient (CLI) | payer MEDICARE, SELFPAY ==
--- NOTE | 2022-05-19 11:53 | DI.RAD.S_ITS ---
PROCEDURE: XR HIP W PEL IF DONE LT 2V INDICATIONS: left hip pain TECHNIQUE: AP pelvis with lateral view(s) of the left hip(s). COMPARISON: None. FINDINGS: Bones: Moderate bilateral femoroacetabular osteoarthritis characterized by joint space narrowing with marginal osteophytosis. Subchondral sclerosis in the acetabular roofs and inferior acetabula bilaterally. There is flattening of the articular surfaces a both the acetabula and femoral heads. No suspicious lytic or blastic osseous lesion. Partially visualized lower lumbar spine degenerative changes. Soft tissues: The visualized bowel gas pattern is normal. No suspicious soft tissue calcifications. IMPRESSION: Moderate bilateral hip osteoarthritis. Dictated by: Paco Alvarez M.D. on 05/19/2022 at 15:33 Approved by: Paco Alvarez M.D. on 05/19/2022 at 15:35
--- NOTE | 2022-05-19 11:53 | DI.RAD.S_ITS ---
PROCEDURE: XR CHEST 2V INDICATIONS: cough TECHNIQUE: 2 views of the chest were acquired. COMPARISON: [facility], , XR CHEST 1V, 04/20/2022, 18:46. FINDINGS: Surgical changes and devices: None. Lungs and pleura: Lungs are clear. No pleural effusions or pneumothorax. Mediastinum: Mediastinal contours are normal. Heart size is normal. Bones and chest wall: No suspicious bony abnormalities. Soft tissues appear unremarkable. IMPRESSION: No acute cardiopulmonary findings Approved by: Carlin Wilkins M.D. on 05/19/2022 at 16:46
[2022-05-19 12:34] LABS: Add Manual Diff / Slide Review NO; Basophils Absolute Auto 100 /uL (0-100); Basophils Percent Auto 0.9 % (0-2); Eosinophils Absolute Auto 100 /uL (0-450); Eosinophils Percent Auto 1.7 % (2-4); Hematocrit 40.5 % (41-53); Lymphocytes Absolute Auto 1900 /uL (1100-4500); Lymphocytes Percent Auto 25.8 % (25-40); Mean Corpuscular HGB Conc 34.5 % (30-36); Mean Corpuscular Hemoglobin 31.9 PG (26-34); Mean Corpuscular Volume 92.3 fL (80-100); Monocytes Absolute Auto 600 /uL (0-900); Monocytes Percent Auto 7.6 % (3-14); Neutrophils Absolute Auto 4700 /uL (1500-7000); Platelet Count 186 X10^3/uL (150-400); Red Blood Cell Count 4.39 X10^6/uL (4.5-5.9); Red Cell Distribution Width 13.7 % (11.6-14.8); White Blood Cell Count 7.3 X10^3/uL (4.5-11.0)
[2022-05-19 13:01] LABS: Alanine Aminotransferase 19 IU/L (<50); Albumin 4.2 g/dL (3.5-5.0); Albumin Globulin Ratio 1.4 (1.0-2.8); Alkaline Phosphatase 74 U/L (38-126); Aspartate Aminotransferase 29 IU/L (17-59); Bilirubin Total 0.5 mg/dL (0.2-1.3); Blood Urea Nitrogen 23 mg/dL (9-20); Calcium 9.3 mg/dL (8.4-10.2); Carbon Dioxide 26 mmol/L (22-32); Chloride 103 mmol/L (98-107); Estimated Glomerular Filt Rate > 60 mL/min (>60); Globulin 2.9 g/dL (1.7-4.1); Glucose 99 mg/dL (80-110); HEMOLYSIS < 15 (0-50); Potassium 4.5 mmol/L (3.4-5.1); Sodium 136 mmol/L (137-145); Total Protein 7.1 g/dL (6.3-8.2)
[2022-05-19 13:20] LABS: Erythrocyte Sedimentation Rate 9 MM/HR (0-15)
== END ==
PROVIDERS: PCP Pediatrics; Referring Provider Pediatrics; Visit Provider Pediatrics
DX: S16.1XXA Strain of muscle, fascia and tendon at neck level, initial encounter (principal); M16.0 Bilateral primary osteoarthritis of hip; M25.552 Pain in left hip; R05.9 Cough, unspecified
CPT/HCPCS: 36415; 71046; 73502; 80053; 85025; 85651; 87070; 87205

== ENCOUNTER → 2022-06-26 11:50 | Outpatient (CLI) | payer MEDICARE, SELFPAY ==
[2022-06-26 12:48] LABS: Appearance Urine UA CLEAR; Bilirubin Urine UA NEGATIVE (NEGATIVE); Color Urine UA YELLOW; Glucose Urine UA NEGATIVE (Negative); Ketones Urine UA NEGATIVE (NEGATIVE); Leukocyte Esterase Urine UA NEGATIVE (NEGATIVE); Nitrite Urine UA NEGATIVE (Negative); Occult Blood Urine UA NEGATIVE (Negative); Protein Urine UA NEGATIVE (Negative); Specific Gravity Urine UA 1.015 (1.000-1.035); Urobilinogen Urine UA 0.2 E.U./dL (0.2); pH Urine UA 5.5 (4.5-8.0)
[2022-06-26 13:17] LABS: Bacteria Urine None Seen; Culture Indicated Urine Cult Not Indicated; RBC Urine None Seen (0-5/HPF); Squamous Epithelial Cell Urine None Seen (0-5/HPF); WBC Urine None Seen (0-5/HPF)
== END ==
PROVIDERS: Family Provider Pediatrics; PCP Pediatrics; Referring Provider Pediatrics; Visit Provider Pediatrics
DX: Z00.00 Encounter for general adult medical examination without abnormal findings (principal); R05.3 Chronic cough; S16.1XXA Strain of muscle, fascia and tendon at neck level, initial encounter
CPT/HCPCS: 81001

== ENCOUNTER → 2022-07-02 07:59 | Outpatient (CLI) | payer MEDICARE, SELFPAY ==
[2022-07-02 09:13] LABS: COVID19 -Nasal RAPID Negative (Negative)
== END ==
PROVIDERS: Family Provider Pediatrics; PCP Pediatrics; Referring Provider Internal Medicine; Visit Provider Internal Medicine
DX: Z20.822 Contact with and (suspected) exposure to COVID-19 (principal)
CPT/HCPCS: 87635; C9803

== ENCOUNTER → 2022-07-02 08:03 | Outpatient (CLI) | payer MEDICARE, SELFPAY ==
[2022-07-02 11:49] LABS: Cholesterol 219 mg/dL (140-199); HDL Cholesterol 68 mg/dL (40-60); LDL Cholesterol Calculated 138 mg/dL (<100); Triglycerides 67 mg/dL (35-150)
[2022-07-02 12:19] LABS: Prostate Specific Antigen Scrn 1.08 ng/mL (0.1-4.0)
--- NOTE | 2022-07-08 09:21 | PM.PFT.1 ---
Pulmonary Function Test Referral & Results Date Patient Seen: 07/02/22 Requesting provider: Dave Florez Results: The spirometry demonstrates an FVC of 3.62 L which is 80% of predicted. The FEV1 was measured at 2.01 L which is 68% of predicted. The FEV1/FVC ratio was 55 which is 77% of predicted. Following the administration of bronchodilator there was a 21% improvement in FEV1 and a 77% improvement in FEF 25-75%. Lung volumes show an SVC of 4.02 L which is 90% of predicted. The diffusing capacity was measured at 35 which is 108% of predicted. The maximum voluntary ventilation was reduced Interpretation: This study demonstrates mild to moderate obstructive lung disease based on reduction FEV1 and minimal reduction FEV1/FVC ratio. There is evidence of significant benefit following bronchodilator administration as above Lung volumes are normal Diffusing capacity is normal Clinical correlation suggested
== END ==
PROVIDERS: Family Provider Pediatrics; PCP Pediatrics; Referring Provider Pediatrics; Visit Provider Pediatrics
DX: Z00.00 Encounter for general adult medical examination without abnormal findings (principal); Z12.5 Encounter for screening for malignant neoplasm of prostate; S16.1XXA Strain of muscle, fascia and tendon at neck level, initial encounter; R05.3 Chronic cough; J44.9 Chronic obstructive pulmonary disease, unspecified; Z87.891 Personal history of nicotine dependence; Z20.822 Contact with and (suspected) exposure to COVID-19
CPT/HCPCS: 36415; 80061; 87635; 94060; 94726; 94729; C9803; G0103

== ENCOUNTER → 2023-07-16 08:34 | Outpatient (CLI) | payer MEDICARE, SELFPAY ==
[2023-07-16 10:08] LABS: Appearance Urine UA CLEAR; Bilirubin Urine UA NEGATIVE (NEGATIVE); Color Urine UA YELLOW; Glucose Urine UA NEGATIVE (Negative); Ketones Urine UA NEGATIVE (NEGATIVE); Leukocyte Esterase Urine UA NEGATIVE (NEGATIVE); Nitrite Urine UA NEGATIVE (Negative); Occult Blood Urine UA NEGATIVE (Negative); Protein Urine UA NEGATIVE (Negative); Urobilinogen Urine UA 0.2 E.U./dL (0.2)
[2023-07-16 10:22] LABS: Bacteria Urine None Seen; Culture Indicated Urine Cult Not Indicated; RBC Urine None Seen (0-5/HPF); Squamous Epithelial Cell Urine 0-1 /HPF (0-5/HPF); WBC Urine 1-5/HPF (0-5/HPF)
[2023-07-16 10:28] LABS: Add Manual Diff / Slide Review NO; Basophils Absolute Auto 0 /uL (0-100); Basophils Percent Auto 0.8 % (0-2); Eosinophils Absolute Auto 200 /uL (0-450); Eosinophils Percent Auto 4.2 % (2-4); Hematocrit 42.4 % (41-53); Hemoglobin 14.3 g/dL (13.5-17.5); Lymphocytes Absolute Auto 1400 /uL (1100-4500); Mean Corpuscular HGB Conc 33.7 % (30-36); Mean Corpuscular Hemoglobin 31.6 PG (26-34); Mean Corpuscular Volume 93.7 fL (80-100); Monocytes Absolute Auto 500 /uL (0-900); Monocytes Percent Auto 8.3 % (3-14); Neutrophils Absolute Auto 3600 /uL (1500-7000); Neutrophils Percent Auto 62.7 % (50-75); Platelet Count 182 X10^3/uL (150-400); Red Blood Cell Count 4.53 X10^6/uL (4.5-5.9); Red Cell Distribution Width 14.3 % (11.6-14.8); White Blood Cell Count 5.8 X10^3/uL (4.5-11.0)
[2023-07-16 10:45] LABS: Alanine Aminotransferase 25 IU/L (<50); Albumin 3.9 g/dL (3.5-5.0); Albumin Globulin Ratio 1.3 (1.0-2.8); Alkaline Phosphatase 55 U/L (38-126); Aspartate Aminotransferase 27 IU/L (17-59); BUN Creatinine Ratio 13.8 (6-22); Bilirubin Total 0.6 mg/dL (0.2-1.3); Blood Urea Nitrogen 16 mg/dL (9-20); Calcium 9.3 mg/dL (8.4-10.2); Carbon Dioxide 28 mmol/L (22-32); Chloride 100 mmol/L (98-107); Cholesterol 238 mg/dL (140-199); Estimated Glomerular Filt Rate > 60 mL/min (>60); Glucose 95 mg/dL (80-110); HDL Cholesterol 64 mg/dL (40-60); HEMOLYSIS < 15 (0-50); LDL Cholesterol Calculated 153 mg/dL (<100); Potassium 4.6 mmol/L (3.4-5.1); Sodium 135 mmol/L (137-145); Total Protein 6.9 g/dL (6.3-8.2); Triglycerides 103 mg/dL (35-150)
[2023-07-16 11:14] LABS: Prostate Specific Antigen Scrn 1.63 ng/mL (0.1-4.0)
[2023-07-16 11:17] LABS: TSH w/ Reflex to FT4 1.31 uIU/mL (0.47-4.68)
[2023-07-19 17:19] LABS: Hep C Virus Ab w/Reflex Quant NEGATIVE s/c (NEGATIVE)
== END ==
PROVIDERS: Family Provider Pediatrics; PCP Pediatrics; Referring Provider Pediatrics; Visit Provider Pediatrics
DX: J41.0 Simple chronic bronchitis (principal); Z12.5 Encounter for screening for malignant neoplasm of prostate; L82.1 Other seborrheic keratosis; Z00.00 Encounter for general adult medical examination without abnormal findings
CPT/HCPCS: 36415; 80053; 80061; 81001; 84443; 85025; 86803; G0103

== ENCOUNTER → 2023-07-16 08:37 | Outpatient (CLI) | payer MEDICARE, SELFPAY | PROVIDERS: Family Provider Pediatrics; PCP Pediatrics; Referring Provider Internal Medicine Critical Care Medicine; Visit Provider Internal Medicine Critical Care Medicine | DX: Z00.00 Encounter for general adult medical examination without abnormal findings (principal); J44.9 Chronic obstructive pulmonary disease, unspecified; R05.3 Chronic cough; Z12.5 Encounter for screening for malignant neoplasm of prostate; L82.1 Other seborrheic keratosis | CPT/HCPCS: 36415; 80053; 80061; 81001; 84443; 85025; 86803; 94060; 94726; 94729; G0103 ==

== ENCOUNTER → 2023-12-04 11:09 | Outpatient (CLI) | payer MEDICARE, SELFPAY ==
[2023-12-04 12:16] LABS: Add Manual Diff / Slide Review NO; Basophils Absolute Auto 100 /uL (0-100); Basophils Percent Auto 1.3 % (0-2); Eosinophils Absolute Auto 100 /uL (0-450); Eosinophils Percent Auto 1.1 % (2-4); Hematocrit 36.8 % (41-53); Hemoglobin 12.4 g/dL (13.5-17.5); Lymphocytes Absolute Auto 2100 /uL (1100-4500); Lymphocytes Percent Auto 18.8 % (25-40); Mean Corpuscular HGB Conc 33.7 % (30-36); Mean Corpuscular Hemoglobin 30.8 PG (26-34); Mean Corpuscular Volume 91.3 fL (80-100); Monocytes Absolute Auto 900 /uL (0-900); Monocytes Percent Auto 8.6 % (3-14); Neutrophils Absolute Auto 7700 /uL (1500-7000); Neutrophils Percent Auto 70.2 % (50-75); Platelet Count 647 X10^3/uL (150-400); Red Blood Cell Count 4.03 X10^6/uL (4.5-5.9); Red Cell Distribution Width 14.7 % (11.6-14.8)
[2023-12-04 15:19] LABS: Alanine Aminotransferase 36 IU/L (<50); Albumin 3.4 g/dL (3.5-5.0); Alkaline Phosphatase 259 U/L (38-126); Aspartate Aminotransferase 27 IU/L (17-59); BUN Creatinine Ratio 22.7 (6-22); Bilirubin Total 0.7 mg/dL (0.2-1.3); Blood Urea Nitrogen 25 mg/dL (9-20); Calcium 9.6 mg/dL (8.4-10.2); Carbon Dioxide 26 mmol/L (22-32); Chloride 96 mmol/L (98-107); Estimated Glomerular Filt Rate > 60 mL/min (>60); Globulin 3.5 g/dL (1.7-4.1); Glucose 94 mg/dL (80-110); HEMOLYSIS < 15 (0-50); Sodium 131 mmol/L (137-145); Total Protein 6.9 g/dL (6.3-8.2)
[2023-12-04 15:23] LABS: Potassium 5.4 mmol/L (3.4-5.1)
== END ==
LOC: LAB 11:10
PROVIDERS: Family Provider Pediatrics; PCP Family Medicine; Referring Provider Physician Assistant; Visit Provider Physician Assistant
DX: R53.83 Other fatigue (principal)
CPT/HCPCS: 36415; 80053; 85025

== ENCOUNTER → 2023-12-14 07:58 | Outpatient (CLI) | payer MEDICARE, SELFPAY ==
[2023-12-14 09:17] LABS: Hematocrit 40.5 % (41-53); Hemoglobin 13.5 g/dL (13.5-17.5); Mean Corpuscular HGB Conc 33.5 % (30-36); Mean Corpuscular Hemoglobin 30.9 PG (26-34); Mean Corpuscular Volume 92.4 fL (80-100); Platelet Count 298 X10^3/uL (150-400); Red Blood Cell Count 4.38 X10^6/uL (4.5-5.9); Red Cell Distribution Width 14.9 % (11.6-14.8); White Blood Cell Count 6.8 X10^3/uL (4.5-11.0)
[2023-12-14 09:45] LABS: HEMOLYSIS < 15 (0-50); Iron 105 ug/dL (49-181)
[2023-12-14 09:51] LABS: Alanine Aminotransferase 21 IU/L (<50); Albumin 4.1 g/dL (3.5-5.0); Albumin Globulin Ratio 1.2 (1.0-2.8); Alkaline Phosphatase 127 U/L (38-126); Aspartate Aminotransferase 26 IU/L (17-59); BUN Creatinine Ratio 17.9 (6-22); Bilirubin Total 0.7 mg/dL (0.2-1.3); Blood Urea Nitrogen 20 mg/dL (9-20); Calcium 10.3 mg/dL (8.4-10.2); Carbon Dioxide 26 mmol/L (22-32); Chloride 100 mmol/L (98-107); Estimated Glomerular Filt Rate > 60 mL/min (>60); Globulin 3.5 g/dL (1.7-4.1); Glucose 95 mg/dL (80-110); HEMOLYSIS < 15 (0-50); Potassium 4.6 mmol/L (3.4-5.1); Sodium 135 mmol/L (137-145); Total Protein 7.6 g/dL (6.3-8.2)
[2023-12-14 09:54] LABS: Neutrophils Absolute Manual 4216 /uL (3000-5900); RBC Morphology Normal Morphology; Total Cells Counted 100
[2023-12-14 09:57] LABS: Percent Iron Saturation 36 % (20-50); Total Iron Binding Capacity 290 ug/dL (261-462); Transferrin 242 mg/dL (206-381)
[2023-12-14 10:32] LABS: Vitamin B12 852 pg/mL (239-931)
[2023-12-21 18:21] LABS: Alkaline Phosphatase, Bone Spe 14.9 ug/L (7.6-24.4)
== END ==
PROVIDERS: Family Provider Pediatrics; PCP Family Medicine; Referring Provider Family Medicine; Visit Provider Family Medicine
DX: Z12.5 Encounter for screening for malignant neoplasm of prostate (principal); R79.89 Other specified abnormal findings of blood chemistry; D75.839 Thrombocytosis, unspecified; D64.9 Anemia, unspecified
CPT/HCPCS: 36415; 80053; 82607; 83540; 83550; 84080; 85025; G0103

== ENCOUNTER 2024-08-01 07:05 | Day surgery (SDC) | payer MEDICARE, SELFPAY ==
[2024-08-01] MEDS: LACTATED RINGERS 1,000 ML 42 ML IV (07:17)
[2024-08-01 07:29] VITALS: BP 130/56; PULSE 54; RESP 18; TEMP 36.3; O2SAT 98; BMI 10.8
--- NOTE | 2024-08-01 07:54 | PM.PREOP ---
Pre-operative Note COVID-19 COVID-19 status: Not tested Interval Note History & Physical reviewed/Exam performed by Physician: Yes Changes to H&P: No ASA Class (for procedural sedation): II
[2024-08-01] MEDS: CEFAZOLIN 2 GM/100 ML PREMIX 100 ML IV (08:12)
--- NOTE | 2024-08-01 08:18 | SUR.OPER ---
Supine on padded OR bed, head on pillow, arms secured on padded arm boards at <90 degrees abduction, legs uncrossed, safety belt at thigh, tape over blanket over lower legs.
[2024-08-01] MEDS: EPINEPHrine 1 MG/ML 0.15 MG INJ (08:25)
--- NOTE | 2024-08-01 08:34 | PM.OP.1 ---
Operative Date/Time/Diagnoses Date of procedure: 08/01/24 Time of procedure: 08:35 Pre-op diagnosis: Umbilical hernia Post-op diagnosis: same Procedure & Clinicians Procedure: Open umbilical hernia repair with mesh Same procedure as scheduled: Yes Surgeon: Dave Elias Supervisor Prop Making: Aaron Goodson Anesthesia Type: General Operative Notes Procedure in detail: Ancef was administered. The patient was brought to the operating room, placed on the table in the supine position and general endotracheal anesthesia was induced. The abdomen was prepped and draped in the usual fashion. A time-out was performed. A 4 cm curvilinear incision was made inferior to the umbilicus. The hernia sac was dissected free from the surrounding subcutaneous adipose tissue. The sac was dissected off the umbilical stalk using a combination of cautery, sharp and blunt dissection. The hernia sac was dissected free from the fascial ring and allowed to drop back down into the abdomen. The fascial defect was about 1 cm. The fascia was then closed transversely with multiple interrupted 0 Ethibond sutures. The subcutaneous adipose tissue was cleared off of the anterior sheath circumferentially about 2 cm in each direction. A piece of polypropylene mesh was trimmed to fit over the fascial closure and secured with Tisseel. Once the Tisseel was dried the umbilical skin was tacked down to the mesh with a single 3-0 Vicryl stitch. The skin was closed with multiple interrupted 3-0 Vicryl dermal sutures followed by a running 4 Monocryl subcuticular closure. Steri-Strips were applied and an abdominal binder was applied. EBL: 5 mL Aaron HDEZ provided assistance with exposure, retraction and closure of incisions. Post-operative Condition: stable Disposition: PACU
[2024-08-01] MEDS: BUPIVACAINE 0.5% (PF) 30 ML VIAL INJ (08:35)
[2024-08-01 08:45] VITALS: BP 130/63; PULSE 73; RESP 17; TEMP 36.4; O2SAT 97
[2024-08-01 08:50] VITALS: BP 94/54; PULSE 72; RESP 15; O2SAT 98
[2024-08-01 08:55] VITALS: BP 119/55; PULSE 65; RESP 13; O2SAT 98
[2024-08-01 09:02] VITALS: BP 107/53; PULSE 65; RESP 20; TEMP 36.4; O2SAT 99
[2024-08-01] MEDS: ALBUTEROL 2.5 MG/3 ML NEB (ADULT) INH (09:03)
== END 2024-08-01 09:38 | disposition home or self-care (01) ==
PROVIDERS: Family Provider Pediatrics; PCP Family Medicine; Referring Provider Surgery; Visit Provider Surgery
PROC: (CPT 49591; principal; 2024-08-01 08:00)
DX: K42.9 Umbilical hernia without obstruction or gangrene (principal)
CPT/HCPCS: 49591; J0171; J0330; J0690; J2405; J2704; J3010; J3490; J7613

== ENCOUNTER → 2025-01-05 08:35 | Outpatient (CLI) | payer MEDICARE, SELFPAY ==
[2025-01-05 09:53] LABS: Add Manual Diff / Slide Review NO; Basophils Absolute Auto 0 /uL (0-100); Basophils Percent Auto 0.7 % (0-2); Eosinophils Absolute Auto 100 /uL (0-450); Eosinophils Percent Auto 1.3 % (2-4); Hematocrit 42.1 % (41-53); Hemoglobin 14.3 g/dL (13.5-17.5); Lymphocytes Absolute Auto 1600 /uL (1100-4500); Lymphocytes Percent Auto 30.7 % (25-40); Mean Corpuscular HGB Conc 33.9 % (30-36); Mean Corpuscular Hemoglobin 31.7 PG (26-34); Mean Corpuscular Volume 93.5 fL (80-100); Monocytes Absolute Auto 500 /uL (0-900); Monocytes Percent Auto 8.8 % (3-14); Neutrophils Absolute Auto 3000 /uL (1500-7000); Neutrophils Percent Auto 58.5 % (50-75); Platelet Count 190 X10^3/uL (150-400); Red Blood Cell Count 4.51 X10^6/uL (4.5-5.9); Red Cell Distribution Width 14.4 % (11.6-14.8); White Blood Cell Count 5.2 X10^3/uL (4.5-11.0)
[2025-01-05 10:14] LABS: Alanine Aminotransferase 21 IU/L (<50); Albumin 4.3 g/dL (3.5-5.0); Albumin Globulin Ratio 1.6 (1.0-2.8); Alkaline Phosphatase 54 U/L (38-126); Aspartate Aminotransferase 27 IU/L (17-59); BUN Creatinine Ratio 20.9 (6-22); Bilirubin Total 0.7 mg/dL (0.2-1.3); Blood Urea Nitrogen 27 mg/dL (9-20); Calcium 9.5 mg/dL (8.4-10.2); Carbon Dioxide 27 mmol/L (22-32); Chloride 101 mmol/L (98-107); Cholesterol 247 mg/dL (140-199); Estimated Glomerular Filt Rate 56 mL/min (>60); Globulin 2.7 g/dL (1.7-4.1); Glucose 95 mg/dL (80-110); HDL Cholesterol 69 mg/dL (40-60); HEMOLYSIS < 15 (0-50); LDL Cholesterol Calculated 166 mg/dL (<100); Potassium 4.7 mmol/L (3.4-5.1); Sodium 135 mmol/L (137-145); Triglycerides 62 mg/dL (35-150)
== END ==
PROVIDERS: Family Provider Pediatrics; PCP Family Medicine; Referring Provider Family Medicine; Visit Provider Family Medicine
DX: Z12.5 Encounter for screening for malignant neoplasm of prostate (principal); D64.9 Anemia, unspecified; R79.89 Other specified abnormal findings of blood chemistry; E78.5 Hyperlipidemia, unspecified
CPT/HCPCS: 36415; 80053; 80061; 85025; G0103

== ENCOUNTER → 2025-01-15 08:33 | Outpatient (CLI) | payer MEDICARE, SELFPAY ==
[2025-01-16 17:13] LABS: Fecal Immunochemical Test Negative (Negative)
== END ==
LOC: LAB 08:34
PROVIDERS: Family Provider Pediatrics; PCP Family Medicine; Referring Provider Family Medicine; Visit Provider Family Medicine
DX: Z12.11 Encounter for screening for malignant neoplasm of colon (principal)
CPT/HCPCS: 82274

== ENCOUNTER → 2025-10-29 10:38 | Outpatient (CLI) | payer MEDICARE, SELFPAY ==
[2025-10-29 11:31] LABS: Alanine Aminotransferase 18 IU/L (<50); Albumin 4.2 g/dL (3.5-5.0); Albumin Globulin Ratio 1.4 (1.0-2.8); Alkaline Phosphatase 56 U/L (38-126); Blood Urea Nitrogen 26 mg/dL (9-20); Calcium 9.9 mg/dL (8.4-10.2); Carbon Dioxide 29 mmol/L (22-32); Chloride 101 mmol/L (98-107); Estimated Glomerular Filt Rate 60 mL/min (>60); Globulin 2.9 g/dL (1.7-4.1); Glucose 105 mg/dL (70-99); HEMOLYSIS < 15 (0-50); Potassium 4.5 mmol/L (3.4-5.1); Sodium 136 mmol/L (137-145); Total Protein 7.1 g/dL (6.3-8.2)
--- NOTE | 2025-10-29 11:50 | DI.RAD.S_ITS ---
PROCEDURE: XR ANKLE RT MIN 3V INDICATIONS: screening TECHNIQUE: 3 views of the ankle were acquired. COMPARISON: None. FINDINGS: Bones: No acute fracture or dislocation. Joint spaces are well maintained. Tiny plantar calcaneal enthesophyte. Soft tissues: No tibiotalar joint effusion. Achilles tendon appears normal. IMPRESSION: No acute bony abnormality or significant effusion. Dictated by: Lenora Marcelo M.D. on 10/29/2025 at 17:39 Approved by: Lenora Marcelo M.D. on 10/29/2025 at 17:40
== END ==
PROVIDERS: PCP Family Medicine; Referring Provider Family Medicine; Visit Provider Family Medicine
DX: N28.9 Disorder of kidney and ureter, unspecified (principal); D50.9 Iron deficiency anemia, unspecified; M25.571 Pain in right ankle and joints of right foot
CPT/HCPCS: 36415; 73610; 80053